=== PATIENT | female | born 1960 | race African-American/Black ===

== ENCOUNTER 2016-09-06 08:27 | Inpatient (IN) ==
[~2016-09-06 08:27] MED LIST: DIPRIVAN 1% 1,000 MG/100 ML BOTTLE ONE
[2016-09-06] MEDS: DIPRIVAN 1% 1,000 MG/100 ML BOTTLE IV SCH ×4 (08:30→23:31)
[2016-09-06] MEDS ORDERED: NS 1,000 ML ONE (08:32)
[2016-09-06] MEDS ORDERED: SOLU-MEDROL ONE (08:32)
[2016-09-06] MEDS ORDERED: SOLU-MEDROL IV ONE (08:35)
--- NOTE | 2016-09-06 09:00 | Diag Imaging Result Doc PS360 ---
EXAM: CHEST-PORTABLE HISTORY: tube placement TECHNIQUE: AP portable at 0850 COMMENT: There is questionable atelectasis in the left lower lobe behind the heart. There is an endotracheal tube with its tip approximately 2 cm above the roxanna. There is an NG tube with its tip coiled in the fundus of the stomach. The inspiration is somewhat suboptimal. There is slight degree of grid cut off and motion artifact but otherwise has been no significant change since 09/20/2015. IMPRESSION: Questionable left lower lobe atelectasis otherwise no evidence of acute disease. Electronically signed by Christofer Adhikari 09/06/2016 8:57 AM
[2016-09-06 09:31] LABS: URINE CULTURE NEEDED? NO; URINE MICRO REVIEW NEEDED? NO; URINE SOURCE CATH
[2016-09-06 09:37] LABS: BILIRUBIN URINE NEGATIVE (NEGATIVE); BLOOD URINE NEGATIVE (NEGATIVE); COLOR YELLOW; GLUCOSE URINE NEGATIVE (NEGATIVE); LEUKOCYTES URINE NEGATIVE (NEGATIVE); NITRITE URINE NEGATIVE (NEGATIVE); PROTEIN URINE 30 mg/dL (NEGATIVE); SP GRAVITY URINE 1.016; TURBIDITY URINE CLEAR (CLEAR); UROBILINOGEN URINE NORMAL (NORMAL)
[2016-09-06 09:39] LABS: UR EPITHELIAL CELLS <10 /HPF (<10); URINE BACTERIA NEGATIVE /HPF; URINE RBC <10 /HPF (<10); URINE WBC <10 /HPF (<10)
[2016-09-06] MEDS: VERSED 100 MG in NS 80 ML IV SCH ×2 (10:30→10:33)
[2016-09-06 11:35] LABS: ALLEN TEST YES; BE 2.4 mmoll (-3.0-3.0); BLOOD TYPE ARTERIAL; DRAW SITE R RADIAL; METHB 0.9 % (0.0-1.5); O2(CT) 16.8 mL/dL (15.0-23.0); PO2(98.6) 231 mmHg (60-100); SAMPLE BLOOD; SAO2 99.6 % (95.0-100.0); SRATE 12 BPM; THB 11.8 g/dL (11.5-17.4); TVOL 500 mL; pH(98.6) 7.34 (7.35-7.45)
[2016-09-06 11:38] LABS: MODALITY VENTILATOR; PCO2(98.6) 54 mmHg (35-45)
[2016-09-06 13:02] LABS: BASO% 0.1 % (0.0-0.8); EOS# 0.07 X1000 (0.0-0.7); EOS% 0.6 % (0.0-10.0); HEMATOCRIT 39.1 % (37.0-47.0); HEMOGLOBIN 12.1 g/dL (12.0-16.0); LYMPH# 0.86 X1000 (1.2-3.4); LYMPH% 7.8 % (20.5-51.1); MANUAL DIFF NEEDED? NO; MCH 28.6 PG (27-31); MCHC 30.9 g/dL (33-37); MCV 92.4 FL (81-99); MONO# 0.19 X1000 (0.11-0.59); MONO% 1.7 % (1.7-9.3); MPV 11.1 FL (7.4-10.4); NEUT% 89.8 % (42.2-75.2); PLT 175 X1000 (130-400); RBC 4.23 XMIL (4.2-5.4)
[2016-09-06 13:14] LABS: AGAP 18; ALBUMIN 3.6 g/dL (3.5-5.0); ALKALINE PHOSPHATASE 125 U/L (32-104); BUN 11 mg/dL (8-22); CALCIUM 8.4 mg/dL (8.8-10.2); CHLORIDE 100 mmol/L (98-107); COSMO 281; GOT 21 U/L (10-30); GPT 16 U/L (10-36); MAGNESIUM 1.9 mg/dL (1.5-2.7); SODIUM 138 mmol/L (136-145); TCO2 20 mmol/L (25-35); TOTAL PROTEIN 6.7 g/dL (6.3-8.3)
[2016-09-06] MEDS ORDERED: DUONEB (A & A) INH PRN (14:22)
[2016-09-06] MEDS ORDERED: SOLU-MEDROL 0 MG in NS 100 ML IV ONE ×2 (14:53→15:18)
[2016-09-06] MEDS: NS 1,000 ML IV SCH (15:16)
[2016-09-06] MEDS: LOVENOX SUBQ SCH (15:17)
[2016-09-06] MEDS: PEPCID IV SCH (15:17)
[2016-09-06] MEDS: ROCEPHIN 1 GM/NS 1 GM/50 ML IVPB IV SCH (15:17)
[2016-09-06] MEDS: SODIUM CHLORIDE 0.9% INJ SCH (15:17)
[2016-09-06] MEDS: HUMALOG SUBQ SCH ×2 (15:41→21:01)
[2016-09-06] MEDS: SOLU-MEDROL IV SCH ×2 (15:41→23:31)
[2016-09-06] MEDS: DUONEB (A & A) INH SCH ×3 (15:51→23:16)
--- NOTE | 2016-09-06 16:56 | HISTORY AND PHYSICAL ---
CHIEF COMPLAINT: Respiratory failure. HISTORY OF PRESENT ILLNESS: Mrs. Buckner is a 56-year-old female, well known to our service with multiple asthma exacerbation admissions. [facility] having EGD and colonoscopy done by Dr. Quezada for diarrhea. After the procedure was done, the patient became short of breath and had audible wheezing. At that time, Dr. Quezada called us for a direct admission to the medical floor for asthma exacerbation. Unfortunately the patient continued to deteriorate and required intubation by Anesthesiology at our [facility]. She was transported to the ER and was stabilized. Currently she shows some mild respiratory acidosis. Her labs are all stable. Her chest x-ray shows good position of tube and her vitals are stable. She is now going to be admitted for status asthmaticus and respiratory failure. PAST MEDICAL HISTORY: Asthma, COPD, type 2 diabetes, hypertension, CHF. SURGICAL HISTORY: Cholecystectomy, port removal, hysterectomy. ALLERGIES: To aspirin and ibuprofen. REVIEW OF SYSTEMS: Unable to obtain. FAMILY HISTORY: Noncontributory. HOME MEDICATIONS: Currently being compiled. PHYSICAL EXAMINATION: VITAL SIGNS: Blood pressure is 114/69, heart rate 89, respiratory rate is 12. O2 saturation is 100% on 100% mechanical ventilation. Temperature is 99.4 degrees. GENERAL: This is an obese female, lying in hospital bed, intubated and sedated. NEUROLOGIC: The patient is sedated on propofol which precludes neurologic examination. HEENT: Head atraumatic and normocephalic. Pupils are equal, round, reactive to light. Oral mucosa is moist. Trachea is midline. There is no JVD or carotid bruits. CHEST: Clear to auscultation bilaterally. Diminished at the bases. CV: Regular rate and rhythm. S1, S2 is noted. No murmurs, gallops, clicks, rubs. GI: Soft, nondistended, nontender. Bowel sounds positive. EXTREMITIES: Without edema, clubbing or cyanosis. Pulses are palpable bilaterally. DIAGNOSTIC DATA: Chest x-ray shows good position of ET tube. No acute findings. ABG on 100% mechanical ventilation, pH 7.34, CO2 54, O2 231, bicarb 26.8, lactic acid 1.7. Sodium 138, potassium 4.0, chloride 100, CO2 20, anion gap 18. BUN 11, creatinine 1, glucose 203. Calcium 8.4, magnesium 1.9. Total bilirubin 0.2, AST 21, ALT 16, alkaline phosphatase 125. Troponin negative. Albumin 3.6. UA is negative. WBC 11.09, hemoglobin 12.9, hematocrit 39.1, platelet count 175,000. ASSESSMENT/PLAN: 1. Acute respiratory failure: Secondary to status asthmaticus. The patient has been intubated and will move her to the ICU. We will continue aggressive pulmonary toilet, steroids, breathing treatments and antibiotics. We will consult Dr. Zarate with Pulmonary Critical Care. 2. Status asthmaticus: As above. We will continue IV steroids, breathing treatments, aggressive pulmonary toilet, oxygen and consult with Dr. Zarate. 3. Diabetes mellitus: Last hemoglobin A1c was 7.5 two days ago. Will add pattern sugars and sliding scale insulin. 4. Hypertension: We will treat with IV medications for now. 5. CHF: Her last echocardiogram done a year ago shows an EF of 65%. She is currently euvolemic. 6. ICU prophylaxis with famotidine IV b.i.d. and Lovenox for DVT prophylaxis. Dictated by KEIRA Bello for Gopal Sin MD cc: KEIRA Bello MD
--- NOTE | 2016-09-06 19:33 | CONSULTATION ---
DATE OF CONSULTATION: 09/06/2016 REQUESTING PHYSICIAN: Hospitalist. REASON FOR CONSULTATION: Respiratory failure. HISTORY OF PRESENT ILLNESS: Ms. Buckner is a 56-year-old black female, nonsmoker, with morbid obesity and asthma who was at [facility] earlier today and underwent an esophagogastroduodenoscopy and a colonoscopy. Following her procedure, she developed progressive wheezing and respiratory distress. She failed to improve with racemic epinephrine and bronchodilators. The patient was subsequently intubated and initiated on mechanical ventilation and transferred to the emergency room prior to transfer to this intensive care unit. PAST MEDICAL HISTORY: 1. Asthma. Patient's medication list is reviewed and she appears to be on Advair 100/50, one puff a day and using Spiriva on a p.r.n. basis. 2. Gastroesophageal reflux with dysphagia. 3. Hypertension. 4. Status post cholecystectomy. 5. Morbid obesity. 6. Gastroparesis. 7. Insulin-requiring diabetes mellitus. 8. Irritable bowel syndrome. 9. Sleep apnea, on CPAP. SOCIAL HISTORY: She is a never smoker. No alcohol use listed. FAMILY HISTORY: Noncontributory to current presentation. REVIEW OF SYSTEMS: Cannot be obtained. PHYSICAL EXAMINATION: General: Reveals an obese, black female who appears her stated age on mechanical ventilation. Vital Signs: Blood pressure 114/69, heart rate 93, respiration rate 12, oxygen saturation 100%. She is afebrile. HEENT: Pupils are equal and reactive. Oropharynx is clear. Neck: Supple. Chest: Reveals good air entry bilaterally with minimal wheezing. Cardiac: Regular rate, normal S1, normal S2. Abdomen: Obese and soft. Extremities: Without edema. LABORATORIES: Chest x-ray reveals possible atelectasis at the left base. Arterial blood gas, pH 7.34, pCO2 of 54, PO2 of 231. IMPRESSION: A 56-year-old with asthma, morbid obesity, Pickwickian status, sleep apnea who developed acute hypoxemic and hypercapnic respiratory failure requiring intubation and mechanical ventilation following an endoscopic procedure. The patient had significant wheezing prior to intubation, but has relatively good air flow now with minimal to no wheezing present. It is not clear whether she had an asthma exacerbation with rapid correction or whether current event was precipitated by laryngospasm. RECOMMENDATIONS: 1. Continue nebulizer and steroids as you are doing. 2. Routine gastric acid suppression. 3. We will initiate weaning parameters tomorrow morning to evaluate extubation. cc: Car Zarate MD MTDD
[2016-09-06] MEDS ORDERED: BLISTEX MEDICATED BERRY LIP BALM TOP PRN (20:50)
[2016-09-07] MEDS: PEPCID IV SCH ×2 (02:05→13:29)
[2016-09-07] MEDS: DIPRIVAN 1% 1,000 MG/100 ML BOTTLE IV SCH ×3 (02:12→07:29)
[2016-09-07] MEDS: NS 1,000 ML IV SCH (03:26)
[2016-09-07] MEDS: DUONEB (A & A) INH SCH ×6 (03:30→23:30)
[2016-09-07 04:33] LABS: ALLEN TEST YES; BE 0.3 mmoll (-3.0-3.0); BLOOD TYPE ARTERIAL; DRAW SITE R RADIAL; METHB 0.6 % (0.0-1.5); O2(CT) 4.2 mL/dL (15.0-23.0); PCO2(98.6) 43 mmHg (35-45); PO2(98.6) 61 mmHg (60-100); SAMPLE BLOOD; SAO2 97.8 % (95.0-100.0); SRATE 12 BPM; TVOL 500 mL; pH(98.6) 7.38 (7.35-7.45)
[2016-09-07 04:35] LABS: MODALITY VENTILATOR
[2016-09-07 05:33] LABS: HEMATOCRIT 34.1 % (37.0-47.0); HEMOGLOBIN 10.7 g/dL (12.0-16.0); MCH 28.2 PG (27-31); MCHC 31.4 g/dL (33-37); MPV 10.4 FL (7.4-10.4); RBC 3.79 XMIL (4.2-5.4)
[2016-09-07 05:58] LABS: CALCIUM 8.4 mg/dL (8.8-10.2); POTASSIUM 4.2 mmol/L (3.5-5.1)
[2016-09-07] MEDS: HUMALOG SUBQ SCH ×4 (06:15→20:09)
--- NOTE | 2016-09-07 07:31 | Diag Imaging Result Doc PS360 ---
EXAM: CHEST-PORTABLE HISTORY: dyspnea TECHNIQUE: Portable COMPARISON: 09/06/2016 FINDINGS: Endotracheal tube is in good position. Nasogastric tube overlies the esophagus and stomach. The lungs are poorly expanded. There is pulmonary edema on the current exam. I believe there is a small left-sided pleural effusion and there is atelectasis in the left base. IMPRESSION: Poor inspiratory effort with interval development of pulmonary edema Electronically signed by Ricky Cerrato 09/07/2016 7:29 AM
[2016-09-07] MEDS: SOLU-MEDROL IV SCH (07:41)
[2016-09-07] MEDS ORDERED: LASIX IV ONE (09:33)
[2016-09-07] MEDS ORDERED: INSULIN PEN NEEDLES ONE (09:39)
[2016-09-07] MEDS: LANTUS SUBQ SCH (09:41)
[2016-09-07 10:08] LABS: ALLEN TEST YES; BE -1.2 mmoll (-3.0-3.0); BLOOD TYPE ARTERIAL; DRAW SITE R RADIAL; METHB 0.9 % (0.0-1.5); O2(CT) 14.9 mL/dL (15.0-23.0); PCO2(98.6) 43 mmHg (35-45); PO2(98.6) 80 mmHg (60-100); SAMPLE BLOOD; SAO2 97.8 % (95.0-100.0); pH(98.6) 7.36 (7.35-7.45)
[2016-09-07 10:09] LABS: MODALITY VENTILATOR
--- NOTE | 2016-09-07 11:21 | PROGRESS NOTE ---
DATE: 09/07/2016 SUBJECTIVE: This patient is still intubated. Propofol has been stopped. She is completely alert. She is following commands. She is on a weaning trial for extubation. OBJECTIVE: Vital Signs: Temperature 98.4 degrees, pulse 108, respiratory rate 16, blood pressure 118/65, on the monitor, O2 saturation 98 on mechanical ventilation. HEENT: Head normocephalic. No trauma. PERRLA. Neck: Supple. No JVD. No masses. Central trachea. Chest: Bilateral crackles. No wheezing. Decreased air entry globally bilaterally. Abdomen: Soft, nontender, nondistended. No hepatosplenomegaly. Extremities: No edema. No clubbing. No cyanosis. Neurological: The patient is alert. She is following commands. She has an endotracheal tube. LABORATORY: WBC 12.5, hemoglobin 10.7, hematocrit 34.1, platelets 277,000. Sodium 140, potassium 4.2, chloride 101, bicarbonate 22, BUN 19, creatinine 1.2, glucose 264, calcium 8.4. ASSESSMENT AND PLAN: 1. Acute hypercapnic respiratory failure likely secondary to asthma attack. This patient is still intubated in the ICU. We are doing a weaning trial. I decreased the dose of the steroids at this moment. Pulmonary Department is following this patient. She has crackles and x-ray today showed mild pulmonary edema. I will stop the fluids and I will give her at a dose of Lasix. 2. Status asthmaticus as above. 3. Type 2 diabetes. Hemoglobin A1c was 7.5, three days ago. She is on pattern of blood sugar and I started today this patient on insulin Lantus. 4. Hypertension. Continue with IV medication for now. 5. Congestive heart failure. Her last echocardiogram done a year ago showed an ejection fraction of 65, probably she has diastolic heart failure. 6. Deep vein thrombosis prophylaxis with Lovenox and GI prophylaxis with famotidine. cc: Gopal Sin MD
[2016-09-07] MEDS ORDERED: S2 RACEPINEPHRINE 2.25% INH ONE (11:50)
[2016-09-07 13:17] LABS: ALLEN TEST YES; BE 2.6 mmoll (-3.0-3.0); BLOOD TYPE ARTERIAL; DRAW SITE R RADIAL; MODALITY COOL AEROSOL; O2(CT) 15.6 mL/dL (15.0-23.0); PCO2(98.6) 45 mmHg (35-45); PO2(98.6) 70 mmHg (60-100); SAMPLE BLOOD; SAO2 96.3 % (95.0-100.0); THB 11.7 g/dL (11.5-17.4)
[2016-09-07] MEDS: ROCEPHIN 1 GM/NS 1 GM/50 ML IVPB IV SCH (13:29)
[2016-09-07] MEDS: TYLENOL PO PRN (13:29)
[2016-09-07] MEDS: LOVENOX SUBQ SCH (13:30)
[2016-09-07] MEDS: SODIUM CHLORIDE 0.9% INJ SCH (13:30)
[2016-09-07] MEDS ORDERED: SOLU-MEDROL IV SCH (20:00)
[2016-09-07] MEDS ORDERED: NORVASC PO ONE (22:38)
[2016-09-08] MEDS: PEPCID IV SCH (02:01)
[2016-09-08] MEDS: DUONEB (A & A) INH SCH ×4 (03:36→23:08)
[2016-09-08 05:43] LABS: HEMATOCRIT 35.1 % (37.0-47.0); HEMOGLOBIN 11.1 g/dL (12.0-16.0); MCH 28.3 PG (27-31); MCHC 31.6 g/dL (33-37); MCV 89.5 FL (81-99); MPV 10.5 FL (7.4-10.4); RBC 3.92 XMIL (4.2-5.4)
[2016-09-08 05:44] LABS: ALLEN TEST YES; BLOOD TYPE ARTERIAL; DRAW SITE R RADIAL; METHB 1.7 % (0.0-1.5); O2(CT) 14.5 mL/dL (15.0-23.0); PCO2(98.6) 43 mmHg (35-45); PO2(98.6) 105 mmHg (60-100); SAMPLE BLOOD; SAO2 100.8 % (95.0-100.0); THB 10.6 g/dL (11.5-17.4); pH(98.6) 7.42 (7.35-7.45)
[2016-09-08 05:45] LABS: MODALITY CANNULA
[2016-09-08 05:55] LABS: AGAP 13; BUN 22 mg/dL (8-22); CALCIUM 8.4 mg/dL (8.8-10.2); CHLORIDE 99 mmol/L (98-107); COSMO 291; POTASSIUM 4.5 mmol/L (3.5-5.1); SODIUM 138 mmol/L (136-145); TCO2 26 mmol/L (25-35)
[2016-09-08] MEDS: HUMALOG SUBQ SCH ×3 (06:15→20:35)
--- NOTE | 2016-09-08 07:00 | Diag Imaging Result Doc PS360 ---
EXAM: CHEST-PORTABLE HISTORY: dyspnea TECHNIQUE: Portable chest COMPARISON: 09/07/2016 FINDINGS: The endotracheal tube has been removed. The nasogastric tube has been removed. The lungs are well expanded. The heart remains borderline mildly prominent. The vessels are not distended. No pleural effusions identified. IMPRESSION: No pneumonia or congestive failure. Electronically signed by Ricky Cerrato 09/08/2016 6:58 AM
[2016-09-08] MEDS: LANTUS SUBQ SCH (09:06)
--- NOTE | 2016-09-08 10:22 | PROGRESS NOTE ---
DATE: 09/08/2016 SUBJECTIVE: Ms. Buckner was admitted on 09/06 in respiratory failure. She is a 56-year-old, well known to our service. Multiple asthma exacerbations and admissions. She was in the [facility] the morning of the having an EGD and colonoscopy done by Dr. Quezada. After the procedure was done the patient became short of breath, audible wheezing. Dr. Quezada called for direct admission and she was admitted here. She showed improvement and was transferred to the Emergency Room and required intubation [facility] because of continued deterioration. PAST MEDICAL HISTORY: Asthma, COPD, diabetes mellitus type 2, hypertension, congestive heart failure. OBJECTIVE: General: She is breathing comfortably now. No audible wheezing. Vital signs: Temp 98.3 degrees, pulse 76, respirations 17, blood pressure 100/67. HEENT: Pupils are equal, round. Lungs: Clear in all lung jules. Cardiovascular: Regular rhythm and rate without murmur or S3. Abdomen: Soft. Skin: Warm and dry. Intake and output: Urine output 3400 mL. LAB: White count 15,640, hematocrit 35, platelet count 286,000. Sodium 138, potassium 4.5, chloride 99, BUN 12, creatinine 1.0. Blood sugar 180 and 310. Chest x-ray noted from today, no pneumonia or congestive heart failure. Lung jules are clear. ASSESSMENT AND PLAN: 1. Acute hypercapnic respiratory failure, likely secondary to asthma attack. She was extubated. Doing much better. There is a possibility that she could go home today. IV has come out. Really do not want to place PICC line at this time. 2. Status asthmaticus. This has improved. 3. Diabetes mellitus type 2. Hemoglobin A1c 7.3. Blood sugar is under good control. 4. Hypertension. 5. Congestive heart failure. We will go ahead and DC her IV and see if we may be can discharge her today or in the morning. cc: Curt Grace MD
[2016-09-08] MEDS: ADVAIR 250/50 DISKUS INH SCH (19:08)
[2016-09-08] MEDS: TYLENOL PO PRN (20:35)
[2016-09-08] MEDS ORDERED: PROTONIX IV SCH (23:45)
[2016-09-08] MEDS ORDERED: SODIUM CHLORIDE 0.9% INJ SCH (23:45)
[2016-09-09] MEDS ORDERED: PROTONIX PO ONE (00:22)
[2016-09-09] MEDS: DUONEB (A & A) INH SCH ×4 (03:29→11:05)
[2016-09-09] MEDS: HUMALOG SUBQ SCH ×2 (06:21→14:06)
[2016-09-09 06:53] LABS: HEMATOCRIT 36.3 % (37.0-47.0); MCH 28.2 PG (27-31); MCHC 30.3 g/dL (33-37); MCV 93.1 FL (81-99); MPV 9.6 FL (7.4-10.4); RBC 3.9 XMIL (4.2-5.4)
[2016-09-09 07:23] VITALS: BP 116/70
[2016-09-09 07:44] LABS: AGAP 10; BUN 24 mg/dL (8-22); CALCIUM 8.1 mg/dL (8.8-10.2); CHLORIDE 102 mmol/L (98-107); COSMO 290; POTASSIUM 4.1 mmol/L (3.5-5.1); SODIUM 142 mmol/L (136-145); TCO2 30 mmol/L (25-35)
[2016-09-09] MEDS: ADVAIR 250/50 DISKUS INH SCH ×2 (07:56)
--- NOTE | 2016-09-09 09:08 | EKG Report ---
Test Performed on : 09/06/2016 10:35:36 AM Test Reason : ENTUBATION Blood Pressure : / mmHG Vent. Rate : 095 BPM Atrial Rate : 095 BPM P-R Int : 188 ms QRS Dur : 076 ms QT Int : 368 ms P-R-T Axes : 051 -03 031 degrees QTc Int : 462 ms Poor data quality, interpretation may be adversely affected Normal sinus rhythm. Cannot rule out Anterior infarct , age undetermined Abnormal ECG No previous ECGs available Unconfirmed Result
[2016-09-09] MEDS: LANTUS SUBQ SCH (09:35)
[2016-09-09] MEDS: TYLENOL PO PRN (10:27)
--- NOTE | 2016-09-09 14:09 | DISCHARGE SUMMARY ---
ADMISSION DATE: 09/06/2016 DISCHARGE DATE: The patient is a 56-year-old, well known to our service with multiple asthma exacerbations. She was at [facility] on the morning of 09/06/2016 for esophagogastroduodenoscopy and colonoscopy per Dr. Quezada. After procedure, just noted the patient became short of breath, audible wheezing, and we admitted her. She had to be intubated for a short time. She was extubated fairly quickly. She had mild respiratory acidosis. Her breathing improved. No further bronchospasm. I will watch her another 24 hours. She was doing well. Chest x-ray was clear and felt like he had no pneumonia or signs of pulmonary venous hypertension. DISPOSITION: Discharged her home on 09/09/2016. DISCHARGE MEDICATIONS: Will be her previous home medications and she is on albuterol nebulizer 2.5 b.i.d., Xanax 0.5 mg b.i.d., amlodipine 10 mg q.a.m., Nexium 40 mg q.a.m., Advair 100/50 one puff twice a day, Lasix 40 mg a day, hydrocodone 10/25 t.i.d., Lantus 5 units at bedtime, Humalog 75-25, 15 units at bedtime, NPH which she also gets 15 q.a.m. Nasonex spray 1 puff b.i.d., and prednisone 20 mg daily. She is on home O2. cc: Curt Grace MD
[2016-09-10] MEDS ORDERED: PROTONIX PO SCH (07:00)
--- NOTE | 2016-09-12 08:12 | ED EKG INTERP ---
This chart was entered by Yanelis Hill Scribe, acting as scribe for Gunnar Barney MD. EKG Interpretation - EKG Time of EKG reading by physician:: 10:35 EKG Read and Signed by:: Gunnar Barney EKG Interpretation (*Must complete 3 of following elements*): Abnormal Rate: 95 Rhythm: nsr [place]: normal QRS: normal MT Interval: normal Comments: cannot rule out anterior infarct This chart was documented by the indicated scribe, (Yanelis Hill Scribe) and accurately reflects the services I performed and decisions made by Ector roman Timothy P., MD, as attested by the provider's signature.
--- NOTE | 2016-09-12 08:12 | PROVIDER DOCUMENTATION ---
This chart was entered by Yanelis Hill Scribe, acting as scribe for Gunnar Barney MD. HPI-Respiratory General - General Chief Complaint: Asthma Attack Stated Complaint: asthma attack Time Seen by Provider: 09/06/16 08:38 Source: EMS Allergies/Adverse Reactions: Patient Allergies Allergy/AdvReac Type Severity Reaction Status Date / Time aspirin Allergy NAUSEA Verified 05/04/15 16:23 ibuprofen [From Advil] Allergy NAUSEA Verified 05/04/15 16:23 Home Medications: Home Medication List Medication Instructions Recorded Confirmed Last Taken Type Esomeprazole Magnesium [Nexium] 40 mg PO QAM 01/04/13 05/19/15 05/19/15 08:00 History Furosemide [Lasix] 40 mg PO QAM 01/04/13 05/19/15 05/19/15 08:00 History Albuterol [Albuterol Neb] 2.5 mg INH BID 04/23/14 05/19/15 05/19/15 14:00 History Amlodipine Besylate 10 mg PO QAM 08/11/14 05/19/15 05/19/15 08:00 History Fluticasone/[place] 100/50 INH 1 puff INH DAILY 08/11/14 05/19/15 05/19/15 08:00 History [Advair 100/50 Diskus] Insulin NPL/Insulin Lispro 15 unit SQ QAM 11/01/14 05/19/15 05/19/15 08:00 History [Humalog Mix 75-25 Pen] Mometasone Nasal [place] [Nasonex 1 spray ROBERT BID 11/01/14 05/19/15 05/19/15 08: 00 History Nasal [place]] Alprazolam [Xanax] 0.5 mg PO BID PRN 12/14/14 05/19/15 05/19/15 08:00 History Hydrocodone/Acetaminophen [[place] 1 each PO TID PRN 12/14/14 05/19/15 05/19/15 08 :00 History 10-325 Tablet] Metformin [Glucophage] 500 mg PO BID 12/14/14 05/19/15 05/19/15 08:00 History Cholecalciferol (Vitamin D3) 2,000 unit PO DAILY #90 tablet 05/10/15 05/19/15 08:00 Rx [Vitamin D3] Insulin Lispro Protamin/Lispro 15 unit SQ QHS #0 05/10/15 05/19/15 05/18/15 21: 00 Rx [Humalog Mix 75-25 Vial] Levofloxacin [Levaquin] 750 mg PO DAILY #5 tablet 05/10/15 05/19/15 05/18/15 08: 00 Rx Levofloxacin [Levaquin] 750 mg PO DAILY #5 tablet 05/24/15 Unknown Rx Prednisone 20 mg PO DAILY #7 tablet 05/24/15 Unknown Rx - History of Present Illness-Resp Nature of Presenting Problem: 56 y/o F presents to ED per EMS. [facility]. The procedure was done. As pt was wakening she become SOB. Pt was given multiple breathing treatments to help with SOB. Pt then became in tripod position in respiratory distress. EMS was called pt was intubated by anesthesiologist at the surgery center. EMS transport pt to ED. On arrival to ED pt was combative and fighting with EMS. Quality of Pain: reports: none, dull Onset/Duration: reports: just prior to arrival Timing: reports: still present Exposure: reports: unknown cause Current Respiratory Medication Therapy: Initiated see nurses note Modifying Factors: improves with: other (vent - intubated) Associated Symptoms: reports: shortness of breath, wheezing Review of Systems - Adult - REVIEW OF SYSTEMS - ADULT ROS:: unobtainable per condition Constitutional: reports: no symptoms reported Respiratory: reports: shortness of breath, wheezing Past History - Adult - PAST MEDICAL HISTORY-ADULT Review of Records: reports: Old Records Reviewed, Nursing Assessment Review Major Childhood Illnesses: reports: denies history Cardiovascular: reports: cardiac disease, CHF, HTN Respiratory: reports: asthma, COPD, sleep apnea (uses CPAP), other (laryngeal edema) Gastrointestinal: reports: diverticulosis, GERD, other (gastroparesis) Obstetrical/Gynecological: reports: denies history Genitourinary: reports: denies history Musculoskeletal: reports: denies history Neurological: reports: headaches/migraines Endocrine/Immune: reports: Diabetes Other Conditions: reports: other (sleep apnea) - PRIOR SURGERIES/PROCEDURES Surgical/Procedure History: reports: colonoscopy, cholecystectomy, hysterectomy , BTL, indwelling device (port) - IMMUNIZATION STATUS Childhood Immunizations: UTD Flu Vaccine: See Nurse Assessment - FAMILY HISTORY Family History: HTN - SOCIAL HISTORY Smoking: denies, non-smoker Substance Use: none/never, denies Physical Exam-General - PHYSICAL EXAM-ADULT Initial Vital Signs Reviewed: Yes - CONSTITUTIONAL General Appearance: alert, severe distress, obese, combative - EYES Eyes: PERRL/EOMI, pink conjunctivae - HEAD, EARS, NOSE, MOUTH & THROAT HENMT: normal ENT inspection - NECK Neck: non-tender - RESPIRATORY Respiratory: decreased breath sounds, wheezing (bilat), increased rate - GASTROINTESTINAL (ABDOMEN) Abdominal Exam: normal bowel sounds, soft - SKIN Integumentary: normal color, warm/dry - NEUROLOGIC Neurologic: grossly normal, other (FROM of all extremites) - PSYCHIATRIC Psych/Mental Status: other (alert, combative) Progress - PLAN OF CARE/RESULTS Progress/Plan/Lab Results: Vital Signs - 8 hr 09/06/16 08:30 09/06/16 09:00 09/06/16 09:11 Temperature Pulse Rate 120 H 109 H Respiratory Rate 12 24 Blood Pressure 69/45 64/49 O2 Sat by Pulse Oximetry 93 L 94 L 100 09/06/16 09:17 09/06/16 09:31 09/06/16 09:45 Temperature 99.4 F Pulse Rate 105 H 108 H 99 H Respiratory Rate 24 24 20 Blood Pressure 59/35 81/50 59/34 O2 Sat by Pulse Oximetry 100 99 100 Bedside Urine ED: Urine Bedside Start: 09/06/16 11:09 Freq: ORDERED Status: Active Activity Type Activity Date Activity User E-Sign Co-Sign Detail Recorded Client Recorded Date Recorded By Document 09/06/16 11:09 [id number] 09/06/16 11:10 [id number] 09/06/16 11:09 Point of Care [Bedside Point of Care] -Lot # [id number] - Results Negative -Control Line Visible? Yes -Additional Comment exp 08/2017 Laboratory Results - last 24 hr 09/06/16 09:01 Urine Source CATH Urine Color YELLOW Urine Turbidity CLEAR Urine pH 6.0 Ur Specific [place] 1.016 Urine Protein 30 A Ur Glucose (Stick) NEGATIVE Ur Ketones (Stick) NEGATIVE Urine Blood NEGATIVE Urine Nitrite NEGATIVE Urine Bilirubin NEGATIVE Urobilinogen Dipstick NORMAL Urine Leukocytes NEGATIVE Urine WBC (Auto) <10 Urine RBC (Auto) <10 U Epithel Cells (Auto) <10 Urine Bacteria (Auto) NEGATIVE Orders Category Date Time Status [place] Cath Insertion ORDERED Care 09/06/16 08:39 Active CHEST-PORTABLE [RAD] Stat Exams 09/06/16 08:33 Completed CBC WITH ELECTRONIC DIFF [HEME] Stat Lab 09/06/16 11:53 Ordered COMPREHENSIVE METABOLIC PANEL [CHEM] Stat Lab 09/06/16 11:53 Ordered MAGNESIUM [CHEM] Stat Lab 09/06/16 11:53 Ordered PRO B-NATRIURETIC PEPTIDE Stat Lab 09/06/16 11:53 Ordered TROPONIN T Stat Lab 09/06/16 11:53 Ordered URINALYSIS W/POSS RFLX CULT [URINALYSIS] Stat Lab 09/06/16 09:01 Completed 0.9% Sodium Chloride Inj [Ns] 1,000 ml Med 09/06/16 08:32 Discontinued .ROUTE As Directed 0.9% Sodium Chloride Inj [Ns] 80 ml Med 09/06/16 10:00 Active Midazolam [Versed] 100 mg IV As Directed Methylprednisolone Sod Succ [Solu-Medrol] Med 09/06/16 08:32 Discontinued 125 mg .ROUTE .STK-MED ONE Propofol [Diprivan 1%] Med 09/06/16 08:24 Discontinued 1,000 mg in 100 ml .ROUTE As Directed Propofol [Diprivan 1%] Med 09/06/16 08:40 Active 1,000 mg in 100 ml IV Per Protocol PLAN: LABS , MONITOR PT PT WAS INTUBATED PRIOR TO ARRIVAL . ON ARRIVAL TO ED PT WAS FIGHTING/COMBATIVE WITH EMS TRYING TO EXTUBATE HERSELF. PT WAS MOVING AIR POORLY WITH SOME WHEEZING. PT IS ALERT BUT NOT ORIENTED. PT IS CONTROLLED AT THIS TIME AND PT AIR MOVEMENT HAS IMPROVED WITH THE VENTILATOR. - REASSESSMENT Reassessment #1 Time Reassessed: 10:50 Status: unchanged (pt is still on ventulator. Labs have not been done due nursing staff unable to draw blood. Lab is trying to draw blood.) - XRAY 1 XRAY: Bilateral XRAY Study: Chest Impression: Abnormal (questionable LLL astelectasis otherwise no evidence of acute disease- (radiologsit)) XRAY Interpretation: see impression - CONSULTS/PCP/HOSPITALIST Notification #1 *Consult/PCP/Hospitalist*: Cuong- (GLOST KILN OPERATOR with hospitalist) ( hospitalist) Time Discussed: 12:40 Consult Disposition: Admit (accepted pt) Departure - Departure Date of Disposition Decision: 09/06/16 Time of Disposition Decision: 09:30 DIAGNOSIS: Respiratory failure, Asthma exacerbation Disposition: ADMITTED INPATIENT 09 Certified Medical Emergency: Emergent Condition: Serious - Critical Care Note This patient required my direct & personal management of CC.: Yes Total Time (mins): 130 Critical Care Statement: This patient required my direct personal management to treat or rule out processes, the absence of which, could potentiallly result in sudden, clinically significant life or limb threatening deterioration. This chart was documented by the indicated scribe, (Yanelis Hill, Bryce) and accurately reflects the services I performed and decisions made by me, Gunnar Barney MD, as attested by the provider's signature.
== END 2016-09-09 15:20 | disposition home or self-care (01) ==
LOC: ED 08:27 → SUATTDRO 10:01 → 3N 10:01 → ICU 11:39 → 3N 09-08 10:56
PROVIDERS: ATTEND Emergency Medicine

== ENCOUNTER 2016-09-27 19:43 | Inpatient (IN) ==
[2016-09-27] MEDS ORDERED: DUONEB (A & A) INH ONE (19:46)
[2016-09-27] MEDS ORDERED: SOLU-MEDROL IV ONE (19:48)
--- NOTE | 2016-09-27 20:28 | Diag Imaging Result Doc PS360 ---
EXAM: CHEST-PORTABLE - 09/27/2016 HISTORY: [facility] TECHNIQUE: Portable chest 2014 COMPARISON: 09/08/2016 FINDINGS: Heart size appears upper normal. Inspiration is mildly shallow with mild basilar subsegmental atelectasis. There is no substantial pleural effusion or pneumothorax identified. IMPRESSION: Mildly shallow inspiration with mild basilar atelectasis. No other evidence of acute disease. Electronically signed by Brandin Browne 09/27/2016 8:26 PM
[2016-09-27 20:36] LABS: MANUAL DIFF NEEDED? NO
[2016-09-27 20:39] LABS: BASO% 0.2 % (0.0-0.8); EOS# 0.28 X1000 (0.0-0.7); HEMATOCRIT 37.6 % (37.0-47.0); HEMOGLOBIN 12.1 g/dL (12.0-16.0); LYMPH# 3.66 X1000 (1.2-3.4); LYMPH% 39.7 % (20.5-51.1); MCH 28.2 PG (27-31); MCHC 32.2 g/dL (33-37); MCV 87.6 FL (81-99); MONO# 0.62 X1000 (0.11-0.59); MONO% 6.7 % (1.7-9.3); MPV 9.8 FL (7.4-10.4); NEUT% 50.4 % (42.2-75.2); PLT 293 X1000 (130-400); RBC 4.29 XMIL (4.2-5.4)
[2016-09-27 20:41] LABS: ALLEN TEST YES; BE 4.3 mmoll (-3.0-3.0); BLOOD TYPE ARTERIAL; DRAW SITE R RADIAL; METHB 1.4 % (0.0-1.5); PCO2(98.6) 33 mmHg (35-45); PO2(98.6) 353 mmHg (60-100); SAMPLE BLOOD; SAO2 99.5 % (95.0-100.0); THB 12.5 g/dL (11.5-17.4); pH(98.6) 7.52 (7.35-7.45)
[2016-09-27 20:42] LABS: MODALITY BI PAP
--- NOTE | 2016-09-27 20:50 | PROVIDER DOCUMENTATION ---
This chart was entered by David Chopra Scribe, acting as scribe for Linsey Good PA. HPI-Respiratory General <Giacnarlo Carrero - Last Filed: 09/27/16 22:46> - General Source: patient, EMS - History of Present Illness-Resp Quality of Pain: reports: other (resp. distress) Severity in ED: reports: moderate, severe Onset/Duration: reports: this morning (worsened this evening) Timing: reports: still present Current Respiratory Medication Therapy: Initiated steroid inhaler Associated Symptoms: reports: cough, hyperventilating, shortness of breath, short of breath, wheezing. denies: chest pain/soreness, headache, heart racing , hurts to breathe, lightheadedness, muscle/bodyaches, nasal congestion, nasal drainage, sinus pain, sore throat, sweaty Similar Symptoms Previously?: Yes Recently seen or treated by another doctor?: No <Linsey Good - Last Filed: 09/27/16 23:18> - General Chief Complaint: Shortness of Breath Stated Complaint: sob Time Seen by Provider: 09/27/16 19:45 Allergies/Adverse Reactions: Patient Allergies Allergy/AdvReac Type Severity Reaction Status Date / Time aspirin Allergy NAUSEA Verified 09/27/16 20:37 ibuprofen [From Advil] Allergy NAUSEA Verified 09/27/16 20:37 Home Medications: Home Medication List Medication Instructions Recorded Confirmed Last Taken Type Esomeprazole Magnesium [Nexium] 40 mg PO QAM 01/04/13 09/27/16 09/27/16 09:00 History Furosemide [Lasix] 40 mg PO QAM 01/04/13 09/27/16 09/26/16 09:00 History Albuterol [Albuterol Neb] 2.5 mg INH BID 04/23/14 09/27/16 09/27/16 09:00 History Amlodipine Besylate 10 mg PO QAM 08/11/14 09/27/16 09/26/16 09:00 History Fluticasone/Salmet 100/50 INH 1 puff INH DAILY 08/11/14 09/27/16 09/27/16 09:00 History [Advair 100/50 Diskus] Insulin NPL/Insulin Lispro 15 unit SQ QAM 0909/27/16 09/27/16 09:00 History [Humalog Mix 75-25 Pen] Mometasone Nasal [place] [Nasonex 1 spray ROBERT BID 11/01/14 09/27/16 09/27/16 09: 00 History Nasal [place]] Alprazolam [Xanax] 0.5 mg PO BID PRN 12/14/14 09/27/16 05/19/15 08:00 History Hydrocodone/Acetaminophen [[place] 1 each PO TID PRN 12/14/14 09/27/16 05/19/15 08 :00 History 10-325 Tablet] Insulin Lispro Protamin/Lispro 15 unit SQ QHS #0 05/10/15 09/27/16 09/26/16 21: 00 Rx [Humalog Mix 75-25 Vial] Insulin Glargine [Lantus] 5 unit SUBQ QHS 09/07/16 09/27/16 09/26/16 21:00 History - History of Present Illness-Resp Nature of Presenting Problem: Pt is a 56 yoaaf who presents to ER via EMS with CC of respiratory distress. Pt reports that she has been short of breath all day and has given herself a breathing tx at home, but did not get any relief. Pt has hx of asthma/COPD and was given 1 breathing tx by EMS. (Linsey Good) Pt is a 56 yoaaf who presents to ER via EMS with CC of respiratory distress. Pt reports that she has been short of breath all day and has given herself a breathing tx at home, but did not get any relief. Pt has hx of asthma/COPD and was given 1 breathing tx by EMS. (David Chopra) Review of Systems - Adult - REVIEW OF SYSTEMS - ADULT Constitutional: denies: chills, fever, fatique, night sweats, weight gain, weight loss Eyes: reports: no symptoms reported Ears, Nose, Mouth & Throat: reports: no symptoms reported Cardiovascular: reports: no symptoms reported Respiratory: reports: dyspnea on exertion, shortness of breath, wheezing. denies: chronic cough, cough, excessive sputum production, hemoptysis, pleurisy Gastrointestinal: reports: no symptoms reported Genitourinary: reports: no symptoms reported Musculoskeletal: reports: no symptoms reported Integumentary: reports: no symptoms reported Neurological: reports: no symptoms reported Psychiatric: reports: no symptoms reported Endocrine: reports: no symptoms reported Hematologic/Lymphatic: reports: no symptoms reported Allergic/Immunologic: reports: no symptoms reported All Other Systems: Reviewed and Negative <Linsey Good - Last Filed: 09/27/16 23:18> Past History - Adult - PAST MEDICAL HISTORY-ADULT Review of Records: reports: Nursing Assessment Review, Medications Reviewed Cardiovascular: reports: cardiac disease, CHF, HTN Respiratory: reports: asthma, COPD, sleep apnea (uses CPAP), other (laryngeal edema) Gastrointestinal: reports: diverticulosis, GERD, other (gastroparesis) Neurological: reports: headaches/migraines Endocrine/Immune: reports: Diabetes Other Conditions: reports: other (sleep apnea) - PRIOR SURGERIES/PROCEDURES Surgical/Procedure History: reports: colonoscopy, cholecystectomy, hysterectomy , BTL, indwelling device (port) - IMMUNIZATION STATUS Childhood Immunizations: UTD, See Nurse Assessment Flu Vaccine: See Nurse Assessment - FAMILY HISTORY Family History: HTN <Linsey Good - Last Filed: 09/27/16 23:18> Physical Exam-General - PHYSICAL EXAM-ADULT Initial Vital Signs Reviewed: Yes - CONSTITUTIONAL General Appearance: appears well, alert, moderate distress, obese - RESPIRATORY Respiratory: chest non-tender, lungs clear, no pleuratic chest pain, respiratory distress, accessory muscle use, rhonchi (lower jules), wheezing ( all jules). negative: normal breath sounds, no respiratory distress, no accessory muscle use, decreased breath sounds - CARDIOVASCULAR Cardiovascular: normal peripheral pulses, tachycardia. negative: regular rate, rhythm, bradycardia, irregularly irregular - MUSCULOSKELETAL Extremity: normal range of motion, non-tender, normal gait, normal inspection, no pedal edema, no calf tenderness, normal capillary refill, pelvis stable. negative: deformity, erythema, inflammation, pedal edema, slow capillary refill - PSYCHIATRIC Psych/Mental Status: normal thought content, normal thought process, oriented x 3, anxious, disheveled. negative: normal mood/affect <Linsey Good - Last Filed: 09/27/16 23:18> Progress - PLAN OF CARE/RESULTS Result Diagrams: 09/27/16 20:27 09/27/16 20:27 <Giancarlo Carrero - Last Filed: 09/27/16 22:46> - PLAN OF CARE/RESULTS Result Diagrams: 09/27/16 20:27 09/27/16 20:27 - EKG 1 Time of EKG reading by physician:: 19:40 EKG Read and Signed by:: Giancarlo Carrero EKG Interpretation (*Must complete 3 of following elements*): Abnormal (Left axis deviation; Possible anterior infarct, age undetermined) Rate: 126 Rhythm: Sinus tachycardia - XRAY 1 XRAY Study: Chest Impression: See EMR Report (Mildly shallow inspiration with mild basilar atelectasis. No other evidence of acute disease. - Dr. Browne (Radiologist)) XRAY Interpretation: See report 2 XRAY: Bilateral XRAY Study: Chest Impression: See EMR Report (NG tube in place; ET tube in place - Dr. Carrero) XRAY Interpretation: See report - CONSULTS/PCP/HOSPITALIST Notification #1 *Consult/PCP/Hospitalist*: Dr. Jeffrey Time Discussed: 21:46 Reason/Comments: respiratory distress Consult Disposition: Admit <Linsey Good - Last Filed: 09/27/16 23:18> - PLAN OF CARE/RESULTS Progress/Plan/Lab Results: Vital Signs - 8 hr 09/27/16 19:53 09/27/16 20:00 09/27/16 20:08 Temperature 97.6 F Pulse Rate 132 H 129 H Respiratory Rate 30 H 36 H Blood Pressure 138/91 O2 Sat by Pulse Oximetry 98 100 09/27/16 22:02 Temperature Pulse Rate 118 H Respiratory Rate 14 Blood Pressure 134/88 O2 Sat by Pulse Oximetry 100 Laboratory Results - last 24 hr 09/27/16 09/27/16 09/27/16 19:57 20:27 20:27 WBC 9.23 RBC 4.29 Hgb 12.1 Hct 37.6 MCV 87.6 MCH 28.2 MCHC 32.2 L RDW Std Deviation 14.1 Plt Count 293 MPV 9.8 Immature Gran % (Auto) 0.0 Neut % (Auto) 50.4 Lymph % (Auto) 39.7 Rooks % (Auto) 6.7 Eos % (Auto) 3.0 Baso % (Auto) 0.2 Immature Gran # (Auto) 0.00 Neut # (Auto) 4.65 Lymph # (Auto) 3.66 H Rooks # (Auto) 0.62 H Eos # (Auto) 0.28 Baso # (Auto) 0.02 PT INR PTT (Actin FS) Specimen Type Sample Site pH pCO2 pO2 HCO3 Base Excess Oxyhemoglobin ABG O2 Sat (Calculated) ABG O2 Saturation ABG Carboxyhemoglobin ABG Methemoglobin Curt Test A-a O2 Difference Total Hemoglobin Lactate Blood Gas Modality Vent Mode FiO2 % Inspiratory BiPAP Expiratory BiPAP Sodium 142 Potassium 4.2 Chloride 103 Carbon Dioxide 24 L Anion Gap 15 BUN 13 Creatinine 1.1 H Estimated GFR/1.73 m2 > 60 BUN/Creatinine Ratio 12 Glucose 246 H POC Glucose 264 H Calculated Osmolality 291 Calcium 9.4 Magnesium 1.9 Total Bilirubin 0.11 L AST 13 ALT 14 Alkaline Phosphatase 125 H Creatine Kinase 60 Bml-B-Nblsycnnndv Pept Total Protein 7.4 Albumin 3.9 Globulin 3.5 Albumin/Globulin Ratio 1.1 09/27/16 09/27/16 09/27/16 20:27 20:27 20:32 WBC RBC Hgb Hct MCV MCH MCHC RDW Std Deviation Plt Count MPV Immature Gran % (Auto) Neut % (Auto) Lymph % (Auto) Rooks % (Auto) Eos % (Auto) Baso % (Auto) Immature Gran # (Auto) Neut # (Auto) Lymph # (Auto) Rooks # (Auto) Eos # (Auto) Baso # (Auto) PT 9.4 INR 0.90 PTT (Actin FS) 26.6 Specimen Type ARTERIAL Sample Site R RADIAL pH 7.52 H pCO2 33 L pO2 353 H HCO3 28.3 H Base Excess 4.3 H Oxyhemoglobin 97.0 ABG O2 Sat (Calculated) 18.0 ABG O2 Saturation 99.5 ABG Carboxyhemoglobin 1.10 ABG Methemoglobin 1.4 Curt Test YES A-a O2 Difference 319.0 Total Hemoglobin 12.5 Lactate 2.70 H Blood Gas Modality BI PAP Vent Mode BIPAP FiO2 % 100.0 Inspiratory BiPAP 20.0 Expiratory BiPAP 6.0 Sodium Potassium Chloride Carbon Dioxide Anion Gap BUN Creatinine Estimated GFR/1.73 m2 BUN/Creatinine Ratio Glucose POC Glucose Calculated Osmolality Calcium Magnesium Total Bilirubin AST ALT Alkaline Phosphatase Creatine Kinase Iuz-T-Wbiruyfoeow Pept < 5 L Total Protein Albumin Globulin Albumin/Globulin Ratio Orders Category Date Time Status FSBS [Finger Stick Blood Sugar (ED)] DIRECTED Care 09/27/16 19:53 Active Dillard Cath Insertion ORDERED Care 09/27/16 22:47 Active NG/OG/Feeding Tube Insertion ORDERED Care 09/27/16 22:47 Active Saline Loc DIRECTED Care 09/27/16 19:46 Active CHEST-PORTABLE [RAD] Stat Exams 09/27/16 19:46 Completed CHEST/ABD TUBE PLACEMENT [RAD] Stat Exams 09/27/16 22:48 Taken ABG [RESP] Routine Lab 09/27/16 20:32 Completed BLOOD CULTURE [BLDCUL] Stat Lab 09/27/16 20:27 Results CBC WITH ELECTRONIC DIFF [HEME] Stat Lab 09/27/16 20:27 Completed CK PROFILE [SP CHEM] Stat Lab 09/27/16 20:27 Completed COMPREHENSIVE METABOLIC PANEL [CHEM] Stat Lab 09/27/16 20:27 Completed MAGNESIUM [CHEM] Stat Lab 09/27/16 20:27 Completed PRO B-NATRIURETIC PEPTIDE Stat Lab 09/27/16 20:27 Completed PROTIME WITH INR [COAG] Stat Lab 09/27/16 20:27 Completed PTT [COAG] Stat Lab 09/27/16 20:27 Completed UA NIMS W/REFLEX CULT [URINALYSIS] Stat Lab 09/27/16 22:48 Uncollected Albuterol 2.5MG/Ipratrop 0.5MG [Duoneb (A & A)] Med 09/27/16 19:46 Discontinued 9 ml INH NOW ONE Etomidate [Amidate] Med 09/27/16 21:57 Discontinued 40 mg IV NOW ONE Methylprednisolone Sod Succ [Solu-Medrol] Med 09/27/16 19:48 Discontinued 125 mg IV NOW ONE Propofol [Diprivan 1%] Med 09/27/16 21:58 Active 1,000 mg in 100 ml IV Per Protocol Racepinephrine 2.25% [S2 Racepinephrine 2.25%] Med 09/27/16 21:43 Discontinued 1 each .ROUTE .STK-MED ONE Succinylcholine [Quelicin] Med 09/27/16 21:58 Discontinued 100 mg IV NOW ONE Aerosol Treatments Routine Oth 09/27/16 19:46 Active Aerosol Treatments Stat Oth 09/27/16 19:46 Active Aerosol Treatments Stat Oth 09/27/16 19:46 Active Pulse Oximetry Stat Oth 09/27/16 19:46 Active EKG [EKG] Stat Ther 09/27/16 19:46 Ordered Procedures - INTUBATION Time of Intubation: 22:46 Airway Evaluation: Obese, Large tongue Mallampati Class: 2 Intubation Method: orotracheal Equipment: Glidescope Tube Size (cm): 7.5 Pretreated with 100% Oxygen?: Yes Breath Sounds after Intubation: equal ETT Primary Tube Confirmation: Capnometry CO2 Change, Direct Visualization, Chest Rise and Fall, Tube placement verified on XRAY Intubation Complications: no complications Vent Settings: See Respiratory Therapy Notes <Giancarlo Carrero - Last Filed: 09/27/16 22:46> Departure <Giancarlo Carrero - Last Filed: 09/27/16 22:46> - Departure Date of Disposition Decision: 09/27/16 Time of Disposition Decision: 21:42 Certified Medical Emergency: Emergent - Critical Care Note This patient required my direct & personal management of CC.: No <Linsey Good - Last Filed: 09/27/16 23:18> - Departure DIAGNOSIS: COPD exacerbation, SOB (shortness of breath) Asthma exacerbation Qualifiers: Asthma severity: unspecified severity Qualified Code(s): J45.901 - Unspecified asthma with (acute) exacerbation DIAGNOSIS: (Ruled Out): PNA (pneumonia) Disposition: ADMITTED INPATIENT 09 Condition: Stable Referrals and Follow-Ups: None,PCP [Primary Care Provider] - Attestation - Physician/ ELODIA Attestation Patient care was provided by Advanced Practice Provider:: Yes Advanced Practice Provider:: Linsey Good Advanced Practice Provider documentation review:: The Mid-level provider documentation, treatment plan and medical decision making was reviewed by the physician who agrees with all treatment and medical decision making by the [facility]. The physician spent face to face time with patient:: No Advanced Practice Provider documentation review:: Supervising physician onsite and consulted in the evaluation and care of this patient. The physician did not have a face to face encounter with the patient. <Linsey Good - Last Filed: 09/27/16 23:18> This chart was documented by the indicated scribe, (David Chopra Scribe) and accurately reflects the services I performed and decisions made by me, Linsey Good PA, as attested by the provider's signature.
[2016-09-27 20:51] LABS: INR 0.9; PROTIME 9.4 Seconds (9.2-11.7); PTT 26.6 Seconds (22.0-36.0)
[2016-09-27 21:01] LABS: AGAP 15; ALBUMIN 3.9 g/dL (3.5-5.0); ALKALINE PHOSPHATASE 125 U/L (32-104); BUN 13 mg/dL (8-22); CALCIUM 9.4 mg/dL (8.8-10.2); CHLORIDE 103 mmol/L (98-107); CK PROFILE 60 U/L (24-173); COSMO 291; GOT 13 U/L (10-30); GPT 14 U/L (10-36); MAGNESIUM 1.9 mg/dL (1.5-2.7); POTASSIUM 4.2 mmol/L (3.5-5.1); SODIUM 142 mmol/L (136-145); TCO2 24 mmol/L (25-35); TOTAL BILIRUBIN 0.11 mg/dL (0.20-1.00); TOTAL PROTEIN 7.4 g/dL (6.3-8.3)
[2016-09-27] MEDS ORDERED: S2 RACEPINEPHRINE 2.25% ONE (21:43)
[2016-09-27] MEDS ORDERED: AMIDATE IV ONE (21:57)
[2016-09-27] MEDS ORDERED: QUELICIN IV ONE (21:58)
[2016-09-27] MEDS: DIPRIVAN 1% 1,000 MG/100 ML BOTTLE IV SCH (23:27)
--- NOTE | 2016-09-28 00:06 | HISTORY AND PHYSICAL ---
REASON FOR ADMISSION: Worsening shortness of breath for the last 1 week. HISTORY OF PRESENT ILLNESS: Ms. Kathy Buckner is 56-year-old lady with past medical history of COPD/asthma, type 2 diabetes, hypertension and reflux disease who has had prior multiple admissions for asthma exacerbation. The last time she was here she was actually intubated. Today patient complains of 1-week history of progressive worsening shortness of breath more so in the last 2 days. She admits to having coughing up whitish sputum but no hemoptysis. Was very difficult to get a good history from the patient because she was in acute respiratory distress on the BiPAP mask. She denies any new lower extremity swelling. She admits to having retrosternal chest pain which is really sharp and not radiating to any particular area. Denies any fever and chills. The patient admits to having worsening orthopnea and PND over the last couple of days. Not aware if she has had any palpitations, no polydipsia, polydipsia obviously. Patient denies any GI or genitourinary complaints of an acute nature. REVIEW OF SYSTEMS: Very limited due to inability to get a coherent history the patient due to fact she was in respiratory distress. ALLERGIES: Aspirin and ibuprofen. HOME MEDICATIONS: Include Lasix 40 mg daily, Advair 100/50 daily, magnesium 40 mg daily, amlodipine 10 mg daily, Xanax 2.5 mg b.i.d., albuterol 2 puffs b.i.d., Lantus 5 units at bedtime, Plain 1 t.i.d., Nasonex 1 spray b.i.d., lispro 15 units q.a.m. and 15 units at bedtime. PRIMARY CARE PHYSICIAN: No primary care provider. SURGICAL HISTORY: She has had tubal ligation, port removed, hysterectomy, cholecystectomy. FAMILY HISTORY: Positive for heart disease, diabetes and prostate cancer. SOCIAL HISTORY: Does not smoke, drink, or use drugs. Lives alone. LABORATORY WORK: White count 9000, hemoglobin and hematocrit 12 and 37, platelets 293,000 with normal differential. Glucose 246, BUN 13, creatinine 1.1. ProBNP is less than 5. PT/PTT normal, pH 7.52, pCO2 33, PO2 353 and this was on FiO2 100% IPAP 20, EPAP 6. Chest x-ray shallow inspiration with mild bibasilar atelectasis. PHYSICAL EXAMINATION: GENERAL: Morbidly obese woman who is in moderate respiratory distress. She is alert and oriented to time with normal mood and affect but she is anxious. She has a BiPAP mask on her face. HEENT: Head is normocephalic, atraumatic. SABRINA, EOMI. Anicteric and not pale. ENT and oropharynx exam was not done because patient has a BiPAP mask on her face, no visual central cyanosis noted. VITAL SIGNS: Blood pressure 134/84, heart rate 118, respirations 14, temperature 97.6. NECK: Short and thick. No bruits or JVD appreciated, no bruit or thyromegaly. CHEST: Decreased air entry in both lung jules with scattered wheezes. CARDIOVASCULAR: First and 2nd heart sounds heard. No gallops, rubs. Rhythm is regular. ABDOMEN: Protuberant soft, nontender. No mass, megaly, bowel sounds hypoactive. RECTAL: Deferred at this time. EXTREMITIES: Good pulses distally in all extremities and is symmetrical. Trace edema noted in both lower extremities. No clubbing, cyanosis, tremors and no asterixis. SKIN: Intact, no breakdown, lesion, erythema. MUSCULAR: Exam is grossly normal. ASSESSMENT: 1. Acute respiratory failure secondary to asthma exacerbation. 2. Asthma exacerbation. 3. Seasonal allergic rhinitis. 4. Hypertension. 5. Type 2 diabetes. PLAN: At this time will optimize out treatment of asthma exacerbation with steroids, bronchodilator, breathing treatments. Patient clinically at this point in time seems to be the tiring out and will require intubation which she is agreeable to. Chest x-ray was very limited film but in the meantime will empirically start antibiotics. For follow up x- ray which hopefully will be evaluated and if there is no infiltrate, these antibiotics can be discontinued. Blood sugars to be monitored with sliding scale. The patient will have DVT prophylaxis and peptic ulcer disease prophylaxis also. Continue blood pressure medications only if systolic blood pressure is greater than 140m, will modify vent settings based on ABGs. Critical care time this patient was 35 minutes. cc: Cielo Jeffrey MD [facility]
[2016-09-28 00:07] LABS: URINE CULTURE NEEDED? NO; URINE MICRO REVIEW NEEDED? NO; URINE SOURCE CATH
[2016-09-28 00:23] LABS: BILIRUBIN URINE NEGATIVE (NEGATIVE); BLOOD URINE NEGATIVE (NEGATIVE); COLOR YELLOW; GLUCOSE URINE 100 mg/dL (NEGATIVE); LEUKOCYTES URINE NEGATIVE (NEGATIVE); NITRITE URINE NEGATIVE (NEGATIVE); PH URINE 5.5; PROTEIN URINE 30 mg/dL (NEGATIVE); SP GRAVITY URINE 1.028; TURBIDITY URINE CLEAR (CLEAR); UR EPITHELIAL CELLS <10 /HPF (<10); URINE BACTERIA NEGATIVE /HPF; URINE RBC <10 /HPF (<10); URINE WBC <10 /HPF (<10); UROBILINOGEN URINE 2 mg/dL (NORMAL)
[2016-09-28] MEDS ORDERED: HUMULIN R SUBQ SCH (01:09)
[2016-09-28] MEDS ORDERED: LANTUS SUBQ SCH (01:09)
[2016-09-28] MEDS ORDERED: ZOFRAN IV PRN (01:09)
[2016-09-28] MEDS ORDERED: SODIUM CHLORIDE 0.9% INJ ONE (01:09)
[2016-09-28 01:59] LABS: ALLEN TEST YES; BE 1.2 mmoll (-3.0-3.0); BLOOD TYPE ARTERIAL; DRAW SITE R RADIAL; METHB 1.6 % (0.0-1.5); O2(CT) 15.6 mL/dL (15.0-23.0); PCO2(98.6) 36 mmHg (35-45); PO2(98.6) 77 mmHg (60-100); SAMPLE BLOOD; SAO2 97.2 % (95.0-100.0); SRATE 16 BPM; THB 11.7 g/dL (11.5-17.4); pH(98.6) 7.45 (7.35-7.45)
[2016-09-28 02:00] LABS: MODALITY VENTILATOR
[2016-09-28] MEDS: ZITHROMAX 500 MG/NS 500 MG/250 ML IVPB IV SCH ×2 (02:00→02:10)
[2016-09-28] MEDS: LOVENOX SUBQ SCH (02:08)
[2016-09-28] MEDS: MORPHINE IV SCH ×2 (02:08→06:03)
[2016-09-28] MEDS: ROCEPHIN 1 GM/NS 1 GM/50 ML IVPB IV SCH (02:09)
[2016-09-28] MEDS: SOLU-MEDROL IV SCH ×4 (02:10→18:23)
[2016-09-28] MEDS: DUONEB (A & A) INH SCH ×6 (03:15→23:19)
[2016-09-28 04:45] LABS: ALLEN TEST YES; BE -4.2 mmoll (-3.0-3.0); BLOOD TYPE ARTERIAL; DRAW SITE R RADIAL; METHB 1.1 % (0.0-1.5); O2(CT) 16.7 mL/dL (15.0-23.0); PCO2(98.6) 33 mmHg (35-45); PO2(98.6) 98 mmHg (60-100); SAMPLE BLOOD; SAO2 98.6 % (95.0-100.0); SRATE 16 BPM; THB 12.2 g/dL (11.5-17.4); TVOL 600 mL; pH(98.6) 7.39 (7.35-7.45)
[2016-09-28 04:47] LABS: MODALITY VENTILATOR
[2016-09-28 05:14] LABS: BASO% 0.2 % (0.0-0.8); EOS# 0.01 X1000 (0.0-0.7); EOS% 0.1 % (0.0-10.0); HEMATOCRIT 34.3 % (37.0-47.0); HEMOGLOBIN 10.9 g/dL (12.0-16.0); LYMPH% 7.3 % (20.5-51.1); MANUAL DIFF NEEDED? YES; MCH 28.3 PG (27-31); MCHC 31.8 g/dL (33-37); MCV 89.1 FL (81-99); MONO# 0.04 X1000 (0.11-0.59); MONO% 0.5 % (1.7-9.3); MPV 10.3 FL (7.4-10.4); NEUT% 91.9 % (42.2-75.2); PLT 273 X1000 (130-400); RBC 3.85 XMIL (4.2-5.4)
[2016-09-28] MEDS: NS 1,000 ML IV SCH ×2 (05:17→15:15)
[2016-09-28 05:22] LABS: INR 0.97; PROTIME 10.2 Seconds (9.2-11.7)
[2016-09-28 05:40] LABS: ALBUMIN 3.7 g/dL (3.5-5.0); CALCIUM 8.9 mg/dL (8.8-10.2); POTASSIUM 4.6 mmol/L (3.5-5.1); TOTAL BILIRUBIN 0.12 mg/dL (0.20-1.00); TOTAL PROTEIN 6.4 g/dL (6.3-8.3)
[2016-09-28 05:49] LABS: TVOL 600 mL
[2016-09-28] MEDS: HUMULIN R SUBQ SCH ×6 (06:04→20:08)
[2016-09-28 06:32] LABS: LYMPHS 7 % (21-51); MONO 2 % (1-9)
[2016-09-28] MEDS: DIPRIVAN 1% 1,000 MG/100 ML BOTTLE IV SCH ×7 (07:21→18:23)
--- NOTE | 2016-09-28 07:52 | Diag Imaging Result Doc PS360 ---
EXAM: CHEST/ABD TUBE PLACEMENT - 09/27/2016 HISTORY: tube placement TECHNIQUE: Portable AP supine chest 11:18 PM COMPARISON: Earlier exam of same evening (09/27/2016) at 2015 FINDINGS: There has been insertion of an intracranial tube with its tip 3.2 cm above the roxanna. There has been interval insertion of a nasogastric tube with its tip at the expected location of the mid stomach. There is increased atelectasis versus development of infiltrate at the left base. The remainder lungs appear clear. There are no other acute changes identified. IMPRESSION: Satisfactory positions of endotracheal and nasogastric tubes. Increased atelectasis versus development of infiltrate at the left base. Electronically signed by Brandin Browne 09/28/2016 7:50 AM
--- NOTE | 2016-09-28 07:54 | Diag Imaging Result Doc PS360 ---
EXAM: CHEST-PORTABLE - 09/28/2016 HISTORY: Short of breath TECHNIQUE: Portable chest 0525 COMPARISON: 09/27/2016 at 11:18 PM FINDINGS: Endotracheal tube and nasogastric tube remain in place. Inspiration is somewhat shallow. There is been interval decrease in atelectasis or infiltrate at the left base. For inspiration, lungs appear grossly clear. There is no pleural effusion or pneumothorax identified. Allowing for inspiration and the AP projection, heart size appears in the upper range of normal. IMPRESSION: Somewhat shallow inspiration. Decrease in left basilar atelectasis or infiltrate. Electronically signed by Brandin Browne 09/28/2016 7:52 AM
[2016-09-28] MEDS: PROTONIX IV SCH (08:42)
[2016-09-28] MEDS: LASIX IV SCH (08:43)
[2016-09-28] MEDS ORDERED: D5 1/2 NS 1,000 ML IV SCH (09:15)
--- NOTE | 2016-09-28 10:06 | PROGRESS NOTE ---
DATE: 09/28/2016 SUBJECTIVE: She is intubated and sedated. Appears comfortable. The lungs are clear anterolateral. OBJECTIVE: Temperature 98.5 degrees, pulse 89, respirations 16, blood pressure 198/52, O2 saturation 97%. Chest x-ray from today: Somewhat shallow inspiration, decreased left basilar atelectasis or infiltrate. Has NG-tube placement. She had come in with worsening shortness of breath yesterday and had trouble breathing for the last week. By report, a 56-year-old with past medical history of COPD, asthma, type 2 diabetes mellitus, hypertension, and reflux disease. Has had prior multiple admissions for asthma exacerbation. At this time, she is actually intubated. Difficult to get a history. She was in acute respiratory distress and on a BiPAP. She had no new extremity swelling. She admits to having retrosternal chest pain which is really sharp not radiating to any particular area. ASSESSMENT AND PLAN: 1. Acute respiratory failure. Asthma exacerbation. Continue ventilator support. Wean as able. Continue bronchodilators. 2. Hypertension. 3. Diabetes mellitus, type 2. Looking at her orders, she was getting 1. Ceftriaxone 1 g IV q. 24 hours. 2. Normal saline running at 100 mL an hour. 3. Methylprednisone 40 mg IV q 6. 4. Albuterol ipratropium breathing treatments. 5. She is getting Lasix 40 mg daily. 6. Getting morphine as needed for pain and sedation. 7. Protonix 40 mg IV daily 8. She is sedated with propofol as well. cc: Curt Grace MD
[2016-09-28] MEDS ORDERED: NS 250 ML ONE (11:17)
--- NOTE | 2016-09-28 13:51 | CONSULTATION ---
DATE OF CONSULTATION: 09/28/2016 REQUESTING PHYSICIAN: Dr. Grace. REASON FOR CONSULTATION: Respiratory failure. HISTORY OF PRESENT ILLNESS: Ms. Buckner is a 56-year-old black female with asthma, nonsmoker, morbid obesity, gastroesophageal reflux with dysphagia, who presented to the emergency room with respiratory distress. She failed BiPAP and was subsequently intubated, initiated on mechanical ventilation. The patient was seen by this practitioner 09/06/2016 when she presented with respiratory failure following an esophagogastroduodenoscopy and a colonoscopy at the outpatient surgery center. She was successfully extubated and discharged home. PAST MEDICAL HISTORY: 1. Asthma. 2. Gastroesophageal reflux disease. 3. Atypical chest pain with a normal cardiac catheterization in December 2012. 4. Status post cholecystectomy. 5. Morbid obesity. 6. Gastroesophageal reflux disease. 7. Insulin-requiring diabetes mellitus. 8. Irritable bowel syndrome. 9. Sleep apnea on CPAP. SOCIAL HISTORY: No alcohol use. She is a never smoker. FAMILY HISTORY: Noncontributory to current presentation. REVIEW OF SYSTEMS: Cannot be obtained. PHYSICAL EXAMINATION: General: Reveals an obese, black female resting comfortably on mechanical ventilation. Vital signs: Blood pressure 84/53, heart rate 89, respiration rate 16, oxygen saturation 97%. HEENT: Pupils are equal and reactive. Oropharynx is clear. Neck: Thick but supple. Chest: Reveals good air entry bilaterally. There is minimal wheezing. The exploratory phase is not prolonged. Cardiac Exam: Distant heart sounds. Normal S1, normal S2. Abdomen: Obese and soft. Extremities: Reveal trace edema. LABORATORIES: White blood count 8.23, hemoglobin 10.9, platelet count 273,000. Arterial blood gas this morning, pH 7.39, pCO2 of 33, PO2 of 98 with an increasing lactate level. Chemistries: Sodium 141, potassium 4.6, chloride 100, bicarbonate 24, anion gap is elevated at 21, BUN 18, creatinine 1.2. Troponin level is negative. Chest x-ray reveals shallow inspiration with bibasilar atelectasis. IMPRESSION: This is a 56-year-old with asthma who presents with atypical presentation for asthma with acute hypoxemic respiratory failure and respiratory distress. Chest x-ray reveals shallow inspiration which would not be typical for an asthma exacerbation. Her chest exam now reveals minimal wheezing which it would also be unlikely that her full blown asthma exacerbation would clear to this point following a brief course of mechanical ventilation and IV steroids. The patient had a cardiac catheterization in December which revealed no evidence of coronary artery disease. She was not significantly hypertensive upon presentation. It is possible she had an asthma exacerbation which is quick to improve and therefore it will be prudent to review her home medication list and compliance. Other possibilities such as reflux with associated laryngospasm would also be in the differential. RECOMMENDATION: 1. Fluid bolus for increasing lactate and mild hypotension. 2. Continue full ventilatory support. 3. Continue antibiotics. 4. Check sputum for culture and sensitivity. 5. Additional recommendations pending hospital course. cc: Car Zarate MD
[2016-09-28] MEDS: HUMULIN 70/30 SUBQ SCH (20:14)
[2016-09-28] MEDS: LANTUS SUBQ SCH (22:13)
[2016-09-29] MEDS: DIPRIVAN 1% 1,000 MG/100 ML BOTTLE IV SCH ×8 (01:01→19:13)
[2016-09-29] MEDS: NS 1,000 ML IV SCH ×2 (01:03→10:10)
[2016-09-29] MEDS: LOVENOX SUBQ SCH (01:04)
[2016-09-29] MEDS: ROCEPHIN 1 GM/NS 1 GM/50 ML IVPB IV SCH (01:04)
[2016-09-29] MEDS: SOLU-MEDROL IV SCH ×4 (01:04→18:11)
[2016-09-29] MEDS: DUONEB (A & A) INH SCH ×6 (04:01→22:49)
[2016-09-29 04:43] LABS: ALLEN TEST YES; BE -9.9 mmoll (-3.0-3.0); BLOOD TYPE ARTERIAL; DRAW SITE R RADIAL; METHB 1.2 % (0.0-1.5); O2(CT) 15.1 mL/dL (15.0-23.0); PCO2(98.6) 35 mmHg (35-45); PO2(98.6) 89 mmHg (60-100); SAMPLE BLOOD; SAO2 97.7 % (95.0-100.0); SRATE 16 BPM; THB 11.2 g/dL (11.5-17.4); TVOL 600 mL; pH(98.6) 7.27 (7.35-7.45)
[2016-09-29 04:47] LABS: MODALITY VENTILATOR
[2016-09-29 05:04] LABS: HEMATOCRIT 35.8 % (37.0-47.0); HEMOGLOBIN 11.5 g/dL (12.0-16.0); MCH 28.9 PG (27-31); MCHC 32.1 g/dL (33-37); MCV 89.9 FL (81-99); MPV 11.2 FL (7.4-10.4); RBC 3.98 XMIL (4.2-5.4)
[2016-09-29 05:30] LABS: AGAP 28; ALBUMIN 3.7 g/dL (3.5-5.0); ALKALINE PHOSPHATASE 103 U/L (32-104); BUN 18 mg/dL (8-22); CALCIUM 8.9 mg/dL (8.8-10.2); CHLORIDE 101 mmol/L (98-107); COSMO 298; GOT 27 U/L (10-30); GPT 15 U/L (10-36); SODIUM 143 mmol/L (136-145); TCO2 14 mmol/L (25-35); TOTAL BILIRUBIN < 0.10 mg/dL (0.20-1.00); TOTAL PROTEIN 6.6 g/dL (6.3-8.3)
[2016-09-29] MEDS ORDERED: NS 1,000 ML IV SCH (05:30)
[2016-09-29] MEDS ORDERED: NS 500 ML IV SCH (05:34)
[2016-09-29] MEDS: HUMULIN R SUBQ SCH ×4 (06:55→21:00)
--- NOTE | 2016-09-29 07:40 | Diag Imaging Result Doc PS360 ---
EXAM: CHEST-PORTABLE - 09/29/2016 HISTORY: vent TECHNIQUE: Portable chest 0520 COMPARISON: 09/28/2016 FINDINGS: Endotracheal tube and nasogastric tube remain in place. There is been interval insertion of a PICC from the left, this tip in the right atrium. There is mild infiltrate or atelectasis at the left base. The remainder lungs appear clear. There is a possible tiny left pleural effusion. There is no pneumothorax seen. Heart size appears upper normal. IMPRESSION: Tip of PICC in right atrium. Mild infiltrate or atelectasis at left base. Possible tiny left pleural effusion. Electronically signed by Brandin Browne 09/29/2016 7:37 AM
[2016-09-29] MEDS ORDERED: VANCOMYCIN 1 GM/NS 1 GM/250 ML IVPB IV ONE (07:51)
[2016-09-29] MEDS ORDERED: VANCOMYCIN IV PER PHARMACY MISC SCH (08:30)
--- NOTE | 2016-09-29 08:37 | PROGRESS NOTE ---
DATE: 09/29/2016 SUBJECTIVE: Still intubated. Appears to be comfortable. OBJECTIVE: Vital signs: Temp is 98.3 degrees, pulse 109, respirations 18, blood pressure 123/86. HEENT: Pupils are equal. Neck: CVP less than 6 cm. Lungs: Clear in all lung jules. Cardiovascular: Regular rhythm and rate without murmur or S3. Abdomen: Soft. Skin: Warm and dry. Intake and output: Urine output was 2300 mL. LABS: This morning, white count elevated at 15,150, hematocrit 35, platelet count 185,000. Chemistry: Sodium 143, potassium 4.0, chloride 101, BUN is 18, creatinine 1.2. Blood sugar 391, 364, 292. ASSESSMENT AND PLAN: 1. Note, anion gap has gone up. Lactate level has gone up as well to 10 and more acidotic. We are going to start insulin drip. I had started some 70/30 insulin split yesterday. Will check acetone level. We will check a chest x-ray. Actually 1 was checked this morning and it showed a PICC line in right atrium. Mild infiltrate or atelectasis in left base. So will treat her for sepsis and broaden her antibiotics, adding vancomycin and Zosyn. 2. Respiratory failure. Continue vent management. Requires full ventilatory support. Give her fluids liberally and give her fluid bolus. She had mild hypotension. 3. Morbid obesity hypoventilation syndrome. 4. History gastroesophageal reflux. 5. Atypical chest pain. She had a normal heart catheterization in December 2012. cc: Curt Grace MD
[2016-09-29] MEDS: HUMULIN R 100 UNIT in NS 100 ML IV SCH (09:29)
[2016-09-29] MEDS: PROTONIX IV SCH (09:30)
[2016-09-29] MEDS: LASIX IV SCH (09:30)
[2016-09-29] MEDS: ZOSYN 3.375 GM/NS 3.375 GM/50 ML IVPB IV SCH ×2 (09:34→13:33)
[2016-09-29] MEDS ORDERED: INSULIN PEN NEEDLES ONE (09:38)
[2016-09-29] MEDS ORDERED: VANCOMYCIN 2,000 MG in NS 500 ML IV ONE (10:00)
[2016-09-29] MEDS: HUMULIN 70/30 SUBQ SCH ×2 (10:45→21:00)
--- NOTE | 2016-09-29 13:08 | Diag Imaging Result Doc PS360 ---
EXAM: THORAX/ABDOMEN/PELVIS - 09/29/2016 HISTORY: intubated leukocytosis progressive lactic acidosis TECHNIQUE: With oral and intravenous contrast. Dose reduction protocol. COMPARISON: CT thorax of 05/20/2015 FINDINGS: CT thorax: There is mild cardiomegaly. There is dependent atelectasis of the bilateral lower lobes. There is mild dependent atelectasis of the bilateral upper lobes. There is no other consolidation identified. There is a tiny left pleural effusion. There is no pneumothorax identified. There is no mediastinal adenopathy. There are endotracheal and nasogastric tube is present. CT abdomen and pelvis: There are no substantial analysis of the liver, spleen, adrenal glands, or pancreas identified. The gallbladder surgically absent. There is mild hydronephrosis on the right, no etiology for which is apparent. There is no renal stone identified. The bilateral kidneys enhance homogeneously. There is a Dillard catheter in the urinary bladder. There is an apparent surgical mesh at the lower anterior abdominal wall which suggests previous hernia repair. There is a small fat-containing midline anterior abdominal wall hernia superior to the apparent surgical repair. There is no bowel containing hernia identified. There is no evidence of bowel obstruction. There is colonic diverticulosis. There is no diverticulitis identified. There is no free air or abscess identified. There appears to been previous hysterectomy. There is no abnormal pelvic mass or fluid collection identified. IMPRESSION: CT thorax: Mild cardiomegaly. Dependent atelectasis at bilateral lower lobes. Tiny left pleural effusion. CT abdomen and pelvis: Mild hydronephrosis on the right, no etiology for which is apparent. Colonic diverticulosis. No evidence of diverticulitis. No abscess. No free air. No bowel obstruction. Electronically signed by Brandin Browne 09/29/2016 1:05 PM
--- NOTE | 2016-09-29 13:14 | Diag Imaging Result Doc PS360 ---
EXAM: NECK W/CONTRAST - 09/29/2016 HISTORY: intubated leukocytosis progressive lactic acidosis TECHNIQUE: With intravenous contrast. Dose reduction protocol. COMPARISON: None. FINDINGS: There is an orotracheal tube present. The oropharynx and hypopharynx are not distended with air due to the presence of the endotracheal tube. There is a nasogastric tube present. There is no discrete inflammation identified. There is no abscess identified. There is no discrete mass lesion identified. There are no substantial enlarged or necrotic appearing lymph nodes identified. There is mild mucosal thickening at the inferior right maxillary sinus. The paranasal sinuses and mastoid air cells otherwise appear clear. IMPRESSION: Orotracheal tube and nasogastric tube present. Allowing for these, no visible acute process in the neck. There is mild mucosal thickening noted at the inferior right maxillary sinus. Electronically signed by Brandin Browne 09/29/2016 1:12 PM
[2016-09-29] MEDS: LANTUS SUBQ SCH (21:00)
[2016-09-30] MEDS: DUONEB (A & A) INH SCH ×6 (03:07→23:10)
[2016-09-30] MEDS: NS 1,000 ML IV SCH ×2 (03:52→06:33)
[2016-09-30] MEDS: ZOSYN 3.375 GM/NS 3.375 GM/50 ML IVPB IV SCH ×5 (03:56→20:52)
[2016-09-30] MEDS: LOVENOX SUBQ SCH (03:56)
[2016-09-30] MEDS: SOLU-MEDROL IV SCH ×4 (03:57→18:13)
[2016-09-30 05:26] LABS: ALLEN TEST YES; BE 0.6 mmoll (-3.0-3.0); BLOOD TYPE ARTERIAL; DRAW SITE R RADIAL; METHB 0.8 % (0.0-1.5); O2(CT) 15.2 mL/dL (15.0-23.0); PCO2(98.6) 26 mmHg (35-45); PO2(98.6) 150 mmHg (60-100); SAMPLE BLOOD; SAO2 99.3 % (95.0-100.0); SRATE 16 BPM; THB 10.9 g/dL (11.5-17.4); TVOL 600 mL; pH(98.6) 7.54 (7.35-7.45)
[2016-09-30 05:27] LABS: MODALITY VENTILATOR
[2016-09-30] MEDS: ZITHROMAX 500 MG/NS 500 MG/250 ML IVPB IV SCH (06:33)
[2016-09-30 06:44] LABS: AGAP 18; ALBUMIN 3.4 g/dL (3.5-5.0); ALKALINE PHOSPHATASE 85 U/L (32-104); BUN 17 mg/dL (8-22); CALCIUM 8.1 mg/dL (8.8-10.2); CHLORIDE 105 mmol/L (98-107); COSMO 297; GOT 27 U/L (10-30); GPT 16 U/L (10-36); POTASSIUM 3.5 mmol/L (3.5-5.1); SODIUM 145 mmol/L (136-145); TCO2 22 mmol/L (25-35); TOTAL BILIRUBIN 0.13 mg/dL (0.20-1.00); TOTAL PROTEIN 6.2 g/dL (6.3-8.3)
[2016-09-30] MEDS: HUMULIN R SUBQ SCH ×4 (07:16→20:59)
--- NOTE | 2016-09-30 07:17 | Diag Imaging Result Doc PS360 ---
EXAM: CHEST-PORTABLE INDICATION: vent TECHNIQUE: One view COMPARISON: 09/29/2016 FINDINGS: This study is very underexposed. The ET tube appears to be in stable position. The NG tube cannot be identified due to the exposure. Given the limitations of the study, the lungs are approximately stable. There is no definite new consolidation. Cardiac silhouette is stable. IMPRESSION: Very limited study due to underexposure. However, grossly stable. Electronically signed by Marco Antonio Infante 09/30/2016 7:14 AM
--- NOTE | 2016-09-30 07:19 | EKG Report ---
Test Performed on : 09/27/2016 7:40:37 PM Test Reason : Chest Pain Blood Pressure : / mmHG Vent. Rate : 126 BPM Atrial Rate : 126 BPM P-R Int : 158 ms QRS Dur : 082 ms QT Int : 296 ms P-R-T Axes : 042 -34 019 degrees QTc Int : 428 ms Sinus tachycardia. Left axis deviation Possible Anterior infarct (cited on or before 06-SEP-2016) Abnormal ECG When compared with ECG of 06-SEP-2016 10:35, No significant change was found Unconfirmed Result
[2016-09-30] MEDS: DIPRIVAN 1% 1,000 MG/100 ML BOTTLE IV SCH ×9 (07:29→22:52)
[2016-09-30] MEDS: LASIX IV SCH ×3 (08:27→18:13)
[2016-09-30] MEDS: PROTONIX IV SCH (08:27)
[2016-09-30] MEDS: HUMULIN R 100 UNIT in NS 100 ML IV SCH (08:28)
[2016-09-30] MEDS: HUMULIN 70/30 SUBQ SCH ×2 (08:29→20:57)
[2016-09-30 08:35] LABS: HEMATOCRIT 31.8 % (37.0-47.0); HEMOGLOBIN 10.3 g/dL (12.0-16.0); MCH 28.8 PG (27-31); MCHC 32.4 g/dL (33-37); MCV 88.8 FL (81-99); MPV 10.5 FL (7.4-10.4); RBC 3.58 XMIL (4.2-5.4)
[2016-09-30] MEDS: VANCOMYCIN 2,000 MG in NS 500 ML IV SCH (09:31)
[2016-09-30] MEDS ORDERED: VANCOMYCIN 1,500 MG in NS 250 ML IV SCH (10:00)
[2016-09-30] MEDS: D5 1/2 NS 1,000 ML IV SCH (11:22)
--- NOTE | 2016-09-30 15:53 | PROGRESS NOTE ---
DATE: 09/30/2016 SUBJECTIVE: Still ventilatory dependent, sedated. OBJECTIVE: Vital signs: Temperature 97.9 degrees, pulse 96, respirations 15, blood pressure 123/79. HEENT: Pupils are equal, round. Lungs: Are clear in all lung jules. Cardiovascular: Regular rhythm and rate without murmur or S3. Abdomen: Soft. Skin: Is warm and dry. Urine output over 5 L. LABS: Review lab from today still some leukocytosis white count 17,230, hematocrit 31, platelet count 275,000. Chemistry. Sodium 150, 250, 254 and 280, electrolytes unremarkable. Chest x-ray unremarkable limited study due to under exposure, ET tube appears to be in stable condition. Chest and abdominal CT done 6th mild cardiomegaly, dependent atelectasis bilateral lower lobes, tiny left pleural effusion. CT abdomen, pelvis mild hydronephrosis of the right. ASSESSMENT AND PLAN: 1. Respiratory failure. Continue vent support. Wean as able. 2. Hyperglycemia is on insulin drip. Continue to adjust, sugars starting come down. 3. Morbid obesity. 4. Gastroesophageal reflux. Review of lab review of orders I do not see anything change at this point. cc: Curt Grace MD
[2016-09-30] MEDS: LANTUS SUBQ SCH (20:54)
[2016-09-30] MEDS: MORPHINE IV PRN (22:59)
[2016-10-01] MEDS: SOLU-MEDROL IV SCH ×4 (00:13→18:28)
[2016-10-01] MEDS: LOVENOX SUBQ SCH (00:14)
[2016-10-01] MEDS: DIPRIVAN 1% 1,000 MG/100 ML BOTTLE IV SCH ×4 (01:09→07:13)
[2016-10-01] MEDS: ZITHROMAX 500 MG/NS 500 MG/250 ML IVPB IV SCH (01:20)
[2016-10-01] MEDS: ZOSYN 3.375 GM/NS 3.375 GM/50 ML IVPB IV SCH ×4 (01:20→20:50)
[2016-10-01] MEDS: LASIX IV SCH ×2 (01:43→09:08)
[2016-10-01] MEDS: DUONEB (A & A) INH SCH ×6 (02:30→23:03)
[2016-10-01 04:36] LABS: ALLEN TEST YES; BE 9.3 mmoll (-3.0-3.0); BLOOD TYPE ARTERIAL; DRAW SITE R RADIAL; METHB 0.3 % (0.0-1.5); O2(CT) 13.1 mL/dL (15.0-23.0); PCO2(98.6) 38 mmHg (35-45); PO2(98.6) 79 mmHg (60-100); SAMPLE BLOOD; SAO2 98.5 % (95.0-100.0); SRATE 10 BPM; THB 9.6 g/dL (11.5-17.4); TVOL 600 mL; pH(98.6) 7.54 (7.35-7.45)
[2016-10-01 04:37] LABS: MODALITY VENTILATOR
[2016-10-01] MEDS: D5 1/2 NS 1,000 ML IV SCH ×2 (04:53→21:21)
[2016-10-01 05:33] LABS: HEMATOCRIT 33.4 % (37.0-47.0); HEMOGLOBIN 10.9 g/dL (12.0-16.0); MCH 29.5 PG (27-31); MCHC 32.6 g/dL (33-37); MCV 90.3 FL (81-99); MPV 10.4 FL (7.4-10.4); RBC 3.7 XMIL (4.2-5.4)
[2016-10-01 06:11] LABS: AGAP 15; ALBUMIN 3.5 g/dL (3.5-5.0); ALKALINE PHOSPHATASE 83 U/L (32-104); BUN 19 mg/dL (8-22); CALCIUM 7.6 mg/dL (8.8-10.2); CHLORIDE 98 mmol/L (98-107); COSMO 295; POTASSIUM 3.3 mmol/L (3.5-5.1); SODIUM 143 mmol/L (136-145); TCO2 30 mmol/L (25-35); TOTAL BILIRUBIN 0.18 mg/dL (0.20-1.00)
[2016-10-01 06:26] LABS: GOT 24 U/L (10-30); GPT 14 U/L (10-36)
[2016-10-01] MEDS: HUMULIN R SUBQ SCH (07:14)
--- NOTE | 2016-10-01 07:19 | Diag Imaging Result Doc PS360 ---
EXAM: CHEST-PORTABLE HISTORY: vent TECHNIQUE: Erect AP portable at 0520 COMMENT: There is an endotracheal tube with its tip at thoracic inlet and an NG tube which is coiled in the fundus of the stomach. The inspiration is suboptimal. There is bibasilar atelectasis. IMPRESSION: Bibasilar atelectasis Electronically signed by Christofer Adhikari 10/01/2016 7:17 AM
[2016-10-01] MEDS ORDERED: POTASSIUM CHLORIDE 40 MEQ/SWI 40 MEQ/100 ML IVPB IV ONE (08:49)
[2016-10-01] MEDS: HUMULIN R 100 UNIT in NS 100 ML IV SCH (09:02)
[2016-10-01] MEDS: PROTONIX IV SCH (09:07)
--- NOTE | 2016-10-01 09:34 | PROGRESS NOTE ---
DATE: 10/01/2016 SUBJECTIVE: This patient is still on mechanical ventilation and sedated, family members at the bedside. All their questions were answered. OBJECTIVE: Vital Signs: Temperature 98 degrees, pulse 62, respiratory rate on the ventilator 18, blood pressure 119/64, oxygen saturation 96 on mechanical ventilation 40% FiO2. HEENT: Head normocephalic. No trauma. PERRLA. Neck: Supple. No JVD. No masses. Central trachea. Cardiovascular: RRR. No murmurs. Chest: Decreased breath sounds at the bases with mild rales. Abdomen: Soft and nondistended. Skin: Warm and dry. Extremities: Lower extremity without edema. Upper extremity around 2+ edema. Neurological examination: The patient is sedated and intubated. LABORATORY: WBC 10.6, hemoglobin 10.9, hematocrit 33.4, platelets 273. Sodium 143, potassium 3.3, chloride 98, bicarbonate 30. BUN 19, creatinine 1, glucose 232, calcium 7.6, albumin 3.5. ASSESSMENT AND PLAN: 1. Acute hypoxemic respiratory failure, likely secondary to severe asthma exacerbation. Continue with ventilatory support, Pulmonary Department is following this patient. We will wean this patient as able. 2. Uncontrolled diabetes. This patient is receiving also steroids which might contribute to her hyperglycemia. She has been getting insulin drip, Lantus and 70/30. I will stop the subcutaneous insulin, and I will start this patient on insulin drip per protocol. I will readjust her insulin tomorrow once I know how much insulin she required in 24 hours. 3. Morbid obesity. Continue with the same management. Probably this patient also has obesity hypoventilation syndrome. Pulmonary Department is following. 4. Gastroesophageal reflux disease. Continue with proton pump inhibitors. 5. Deep vein thrombosis prophylaxis with Lovenox. 6. Hypokalemia. I will replace the potassium today. CRITICAL CARE TIME: 35 minutes. cc: Gopal Sin MD
[2016-10-01] MEDS: VANCOMYCIN 2,000 MG in NS 500 ML IV SCH (09:51)
[2016-10-01 10:03] LABS: ALLEN TEST YES; BE 10.6 mmoll (-3.0-3.0); BLOOD TYPE ARTERIAL; DRAW SITE R RADIAL; O2(CT) 17.6 mL/dL (15.0-23.0); PO2(98.6) 66 mmHg (60-100); SAMPLE BLOOD; THB 13.5 g/dL (11.5-17.4); pH(98.6) 7.46 (7.35-7.45)
[2016-10-01 10:11] LABS: MODALITY VENTILATOR
[2016-10-01] MEDS ORDERED: HUMULIN R 100 UNIT in NS 100 ML IV SCH (10:11)
[2016-10-01 10:14] LABS: PCO2(98.6) 51 mmHg (35-45)
[2016-10-01] MEDS: TYLENOL PO PRN (15:48)
[2016-10-01] MEDS: MORPHINE IV PRN (20:28)
[2016-10-01] MEDS ORDERED: NORCO-10 PO PRN (23:39)
[2016-10-02] MEDS: LOVENOX SUBQ SCH (00:32)
[2016-10-02] MEDS: SOLU-MEDROL IV SCH ×3 (00:32→09:46)
[2016-10-02] MEDS: ZITHROMAX 500 MG/NS 500 MG/250 ML IVPB IV SCH (02:18)
[2016-10-02] MEDS: ZOSYN 3.375 GM/NS 3.375 GM/50 ML IVPB IV SCH ×4 (02:18→21:00)
[2016-10-02] MEDS: DUONEB (A & A) INH SCH ×6 (03:05→23:08)
[2016-10-02 04:14] LABS: ALLEN TEST YES; BE 11.2 mmoll (-3.0-3.0); BLOOD TYPE ARTERIAL; DRAW SITE R RADIAL; METHB 1.1 % (0.0-1.5); O2(CT) 13.8 mL/dL (15.0-23.0); PO2(98.6) 57 mmHg (60-100); SAMPLE BLOOD; SAO2 92.2 % (95.0-100.0); THB 10.9 g/dL (11.5-17.4); pH(98.6) 7.45 (7.35-7.45)
[2016-10-02 04:15] LABS: MODALITY CANNULA
[2016-10-02 04:16] LABS: PCO2(98.6) 53 mmHg (35-45)
[2016-10-02 06:11] LABS: HEMATOCRIT 33.5 % (37.0-47.0); HEMOGLOBIN 10.6 g/dL (12.0-16.0); MCH 28.6 PG (27-31); MCHC 31.6 g/dL (33-37); MCV 90.3 FL (81-99); MPV 10.5 FL (7.4-10.4); RBC 3.71 XMIL (4.2-5.4)
[2016-10-02 06:32] LABS: AGAP 11; ALBUMIN 3.5 g/dL (3.5-5.0); ALKALINE PHOSPHATASE 70 U/L (32-104); BUN 26 mg/dL (8-22); CALCIUM 7.2 mg/dL (8.8-10.2); CHLORIDE 101 mmol/L (98-107); COSMO 295; GOT 17 U/L (10-30); GPT 13 U/L (10-36); POTASSIUM 3.5 mmol/L (3.5-5.1); SODIUM 145 mmol/L (136-145); TCO2 33 mmol/L (25-35); TOTAL BILIRUBIN 0.25 mg/dL (0.20-1.00); TOTAL PROTEIN 6.5 g/dL (6.3-8.3)
--- NOTE | 2016-10-02 07:36 | Diag Imaging Result Doc PS360 ---
CHEST-PORTABLE - 10/02/2016 INDICATION: vent TECHNIQUE: COMPARISON: 10/01/2016 FINDINGS: The endotracheal tube and nasogastric tube have been removed. The left PICC line appears to have come back somewhat, the tip is now directed into the azygos vein. Lung volumes are improved. No significant infiltrates. Heart size and pulmonary vascularity is normal. IMPRESSION: Extubation. Improvement from prior. Electronically signed by Lawrence Stokes 10/02/2016 7:34 AM
[2016-10-02] MEDS: LASIX IV SCH (09:00)
[2016-10-02] MEDS: PROTONIX IV SCH (09:00)
[2016-10-02] MEDS ORDERED: 1/2 NS 1,000 ML IV SCH (09:38)
[2016-10-02] MEDS ORDERED: LANTUS SUBQ SCH (09:45)
[2016-10-02] MEDS ORDERED: CALMOSEPTINE OINTMENT TOP PRN (09:55)
--- NOTE | 2016-10-02 09:57 | PROGRESS NOTE ---
DATE: 10/02/2016 SUBJECTIVE: This patient was extubated yesterday. She is doing fine. She is completely alert and oriented x3. She is tolerating food also. Since she is doing much better, I will transfer this patient to the medical floor. I will remove the Dillard catheter and I will adjust her medications. OBJECTIVE: Vital Signs: Temperature 96.8 degrees, pulse 63, respiratory rate 12, blood pressure 127/70, and oxygen saturation 96 on 3 L of nasal cannula. HEENT: Head normocephalic. No trauma. PERRLA. Neck: Supple. No JVD. No masses. Central trachea. Cardiovascular: RRR. No murmurs. Chest: Decreased breath sounds at the bases with mild rales. Abdomen: Soft, nontender, nondistended. Skin: Warm and dry. Extremities: Lower extremity without edema. Upper extremities are around 1+ to 2+ edema. Neurological examination: The patient is alert and oriented x3. No focal neurological deficits. She moves all 4 extremities. LABORATORY: WBC 10.3, hemoglobin 10.6, hematocrit 90.3, platelets 270. Sodium 145, potassium 3.5, chloride 101, bicarbonate 33, BUN 26, creatinine 0.9, glucose 125, calcium 7.2, albumin 3.5. ASSESSMENT AND PLAN: 1. Acute hypoxemic respiratory failure likely secondary to severe asthma exacerbation. This patient was extubated yesterday. She is not having respiratory failure at this moment. We will transfer this patient to the medical floor. 2. Uncontrolled diabetes. I have placed this patient on Lantus 20 units q.a.m. and sliding scale insulin. I will readjust the dose of the Lantus if I have to. 3. Morbid obesity. Continue with the same management. Probably this patient also has hypoventilation syndrome. Pulmonary Department is following this patient. 4. Gastroesophageal reflux disease. Continue with proton pump inhibitors, but I will switch the Protonix from intravenous to oral. 5. Deep vein thrombosis prophylaxis. Continue with Lovenox. 6. Hypokalemia, resolved. CRITICAL CARE TIME: 35 minutes. cc: Gopal Sin MD
[2016-10-02] MEDS: HUMULIN R SUBQ SCH ×3 (11:22→21:27)
[2016-10-03] MEDS: SOLU-MEDROL IV SCH ×2 (01:00→11:10)
[2016-10-03] MEDS: LOVENOX SUBQ SCH (02:44)
[2016-10-03] MEDS: ZOSYN 3.375 GM/NS 3.375 GM/50 ML IVPB IV SCH ×4 (02:44→20:30)
[2016-10-03] MEDS: DUONEB (A & A) INH SCH ×6 (03:17→22:50)
[2016-10-03 04:25] LABS: ALLEN TEST YES; BE 10.5 mmoll (-3.0-3.0); BLOOD TYPE ARTERIAL; DRAW SITE R RADIAL; METHB 0.6 % (0.0-1.5); O2(CT) 15.2 mL/dL (15.0-23.0); PO2(98.6) 87 mmHg (60-100); SAMPLE BLOOD; SAO2 99.3 % (95.0-100.0); THB 11.1 g/dL (11.5-17.4); pH(98.6) 7.45 (7.35-7.45)
[2016-10-03 04:26] LABS: MODALITY CANNULA; PCO2(98.6) 52 mmHg (35-45)
[2016-10-03 05:22] LABS: HEMATOCRIT 35.2 % (37.0-47.0); HEMOGLOBIN 11.1 g/dL (12.0-16.0); MCH 27.9 PG (27-31); MCHC 31.5 g/dL (33-37); MCV 88.4 FL (81-99); MPV 10.2 FL (7.4-10.4); RBC 3.98 XMIL (4.2-5.4)
[2016-10-03 05:44] LABS: AGAP 14; ALBUMIN 3.2 g/dL (3.5-5.0); ALKALINE PHOSPHATASE 78 U/L (32-104); BUN 35 mg/dL (8-22); CALCIUM 7.7 mg/dL (8.8-10.2); CHLORIDE 95 mmol/L (98-107); COSMO 297; GOT 13 U/L (10-30); GPT 13 U/L (10-36); POTASSIUM 3.4 mmol/L (3.5-5.1); SODIUM 141 mmol/L (136-145); TCO2 32 mmol/L (25-35); TOTAL BILIRUBIN 0.32 mg/dL (0.20-1.00); TOTAL PROTEIN 6.3 g/dL (6.3-8.3)
[2016-10-03] MEDS: HUMULIN R SUBQ SCH ×4 (06:21→20:44)
[2016-10-03] MEDS: PROTONIX PO SCH (06:22)
--- NOTE | 2016-10-03 07:35 | Diag Imaging Result Doc PS360 ---
EXAM: CHEST-PORTABLE HISTORY: TECHNIQUE: Portable AP COMPARISON: 10/02/2016 FINDINGS: the left-sided PICC line is in good position with the tip overlying the right atrium. Poor inspiratory effort. The heart is borderline mildly prominent. No consolidation. The vessels are not distended. No pleural effusions identified. IMPRESSION: The PICC line is in good position. Heart is borderline mildly prominent. Electronically signed by Ricky Cerrato 10/03/2016 7:33 AM
[2016-10-03] MEDS ORDERED: LANTUS SUBQ SCH (08:29)
[2016-10-03] MEDS ORDERED: INSULIN PEN NEEDLES ONE (09:01)
[2016-10-03] MEDS: LASIX PO SCH (09:08)
--- NOTE | 2016-10-03 14:55 | PROGRESS NOTE ---
DATE: 10/03/2016 SUBJECTIVE: This patient was extubated 2 days ago. She is doing fine. She has been transferred to the floor, she is alert and oriented x3. She is tolerating food. Dillard catheter has been removed. She has been complaining of loose stools. I will ask for C. difficile toxin and antigen to rule out colitis. Also, I will increase the dose of Lantus because her blood sugar was around 240. I will continue with sliding scale insulin. OBJECTIVE: Vital Signs: Temperature 97.9 degrees, pulse 65, respiratory rate 18, blood pressure 125/70, O2 saturation 96 on 3 L of nasal cannula. HEENT: Head normocephalic. No trauma. PERRLA. Neck: Supple. No JVD. No masses. Central trachea. Chest: Decreased breath sounds at the bases. Abdomen: Soft, nontender, nondistended. Skin: Warm and dry. Extremities: No edema at the level of the lower extremities, upper extremities are around 1 to 2+ edema. Neurological: The patient is alert and oriented x3. No focal neurological deficits. She moves all 4 extremities. LABORATORY: WBC 12.4, hemoglobin 11.1, hematocrit 35.2, platelets 262,000. Sodium 141, potassium 3.4, chloride 95, bicarbonate 32, BUN 35, creatinine 0.9, glucose 240, calcium 7.7, albumin 3.2. ASSESSMENT AND PLAN: 1. Acute hypoxemic respiratory failure likely secondary to severe asthma exacerbation. This patient was extubated 2 days ago. She is not having any kind of respiratory distress at this moment, continue with breathing treatment, and oxygen supplementation. 2. Uncontrolled diabetes. I have increased the dose of Lantus from 20 to 24 in the morning, continue with a sliding scale and I will readjust her dose of Lantus if I have to in the morning again. 3. Morbid obesity. Continue with the same management. Probably this patient has also hypoventilation syndrome. Pulmonary department is following this patient. 4. Gastroesophageal reflux disease. Continue with proton pump inhibitors. 5. Deep vein thrombosis prophylaxis. Continue with Lovenox. 6. Hypokalemia. I will replace the potassium today. 7. Diarrhea. I will ask for Clostridium difficile toxin and antigen to rule out colitis, will monitor. cc: Gopal Sin MD
[2016-10-04] MEDS: SOLU-MEDROL IV SCH (01:57)
[2016-10-04] MEDS: ZOSYN 3.375 GM/NS 3.375 GM/50 ML IVPB IV SCH ×2 (01:57→08:54)
[2016-10-04] MEDS: LOVENOX SUBQ SCH (01:57)
[2016-10-04] MEDS: TYLENOL PO PRN (03:00)
[2016-10-04] MEDS: DUONEB (A & A) INH SCH ×3 (03:40→11:28)
[2016-10-04] MEDS: PROTONIX PO SCH (06:09)
[2016-10-04] MEDS: HUMULIN R SUBQ SCH ×2 (06:10→11:23)
[2016-10-04 06:56] LABS: HEMATOCRIT 34.6 % (37.0-47.0); MCH 28.5 PG (27-31); MCHC 31.8 g/dL (33-37); MCV 89.6 FL (81-99); MPV 9.9 FL (7.4-10.4); RBC 3.86 XMIL (4.2-5.4)
[2016-10-04 07:11] LABS: AGAP 10; ALBUMIN 3.3 g/dL (3.5-5.0); ALKALINE PHOSPHATASE 72 U/L (32-104); BUN 27 mg/dL (8-22); CALCIUM 8.3 mg/dL (8.8-10.2); CHLORIDE 96 mmol/L (98-107); COSMO 291; GOT 9 U/L (10-30); GPT 12 U/L (10-36); POTASSIUM 3.8 mmol/L (3.5-5.1); SODIUM 140 mmol/L (136-145); TCO2 34 mmol/L (25-35); TOTAL PROTEIN 6.4 g/dL (6.3-8.3)
[2016-10-04 07:40] VITALS: BP 127/78
--- NOTE | 2016-10-04 07:44 | Diag Imaging Result Doc PS360 ---
EXAM: CHEST-2 VIEWS HISTORY: abnormal exam TECHNIQUE: PA and lateral chest COMMENT: There is ill-defined opacity in the retrocardiac portion of the left lower lobe. This was not clearly present on the previous radiographs however there was apparently bibasal or atelectasis on the CT of the chest dated 09/29/2016. IMPRESSION: Left lower lobe atelectasis versus pneumonia. Electronically signed by Christofer Adhikari 10/04/2016 7:42 AM
[2016-10-04] MEDS ORDERED: LANTUS SUBQ SCH (07:53)
[2016-10-04] MEDS: LASIX PO SCH (08:55)
[2016-10-04] MEDS ORDERED: PREDNISONE PO SCH (09:00)
[2016-10-04] MEDS ORDERED: MEDROL DOSEPAK PO SCH ×2 (11:45→12:00)
[2016-10-04] MEDS ORDERED: MEDROL PO SCH (12:00)
--- NOTE | 2016-10-04 18:16 | DISCHARGE SUMMARY ---
ADMISSION DATE: 09/27/2016 DISCHARGE DATE: 10/04/2016 CONSULTATIONS: Car Zarate MD of Pulmonology. PERTINENT PROCEDURES: 1. Chest x-ray showed mildly shallow inspiration with mild bibasilar atelectasis. No other evidence of acute disease. 2. Chest, abdomen, pelvis CT showed mild cardiomegaly, dependent atelectasis at the basilar lower lobes, tiny left pleural effusion, mild hydronephrosis on the right. No etiology is apparent. Colonic diverticulosis. No evidence of diverticulitis. No abscess. No free air. No bowel obstruction. 3. Neck CT showed orotracheal neck tube, nasogastric tube present allowing for these acute process in the neck. There is mild mucosal thickening noted at the inferior right maxillary sinus. 4. Final chest x-ray showed left lower lobe atelectasis versus pneumonia. DISCHARGE DIAGNOSES: 1. Acute hypoxemic respiratory failure likely secondary to asthma exacerbation. The patient was electively intubated secondary to tiring on admission now status post extubation. She will be discharged on home O2. 2. Uncontrolled diabetes. The patient will be sent home on Lantus. 3. Morbid obesity. The patient has been educated on diet and exercise. 4. Hypoventilation syndrome followed by Pulmonology. 5. Gastroesophageal reflux disease. Continue proton pump inhibitor. 6. Hypokalemia resolved. 7. Diarrhea. Clostridium difficile was negative. Improved. HISTORY OF PRESENT ILLNESS: Ms. Buckner is a 56-year-old, female who carries a past medical history of COPD, asthma, type 2 diabetes, hypertension, GERD, who has had multiple admissions for asthma exacerbations. On her last admission she had to be intubated. On the day of her admission she complained of a 1-week history of progressive worsening shortness of breath, coughing up whitish sputum. She was in acute respiratory distress on BiPAP. Laboratory data in ED showed a white count 9000, hemoglobin and hematocrit of 12 and 37, platelet count of 293,000, blood glucose was 246, BUN 13, creatinine of 1.1, proBNP was less than 5. Chest x-ray showed mild bibasilar atelectasis with shallow inspirations. HOSPITAL COURSE: She was admitted for acute respiratory failure secondary to asthma exacerbation. She was started on IV steroids, bronchodilators and clinically due to the patient tiring count the patient agreed to be electively intubated. She was empirically treated with antibiotics. Pulmonology was consulted. While the patient was in ICU her anion gap did go up as well as her lactic acid level. She was initiated on an insulin drip. Her acetone level was negative. A chest x-ray showed a mild infiltrate or atelectasis in her left lung base. They did broaden her IV antibiotics with vancomycin and Zosyn. She was having some mild hypotension and she was given more fluid resuscitation. She continued on ventilator support. They did check a chest, abdomen and pelvis CT that did show dependent atelectasis in the bilateral lower lobes and a tiny left pleural effusion. It did not show any evidence of pneumonia. She was able to be weaned off the ventilator to a Ventimask that was weaned down to a nasal cannula that she has tolerated well on 3 L. The patient was able to move out of the ICU to a regular floor. Physical Therapy was consulted to work with the patient. She was tolerating p.o. We weaned down her IV steroids to p.o. and made adjustments to her Lantus for her hyperglycemia. The patient is stable for discharge today. She will be discharged back home with home health as well as home O2. VITAL SIGNS AT TIME OF DISCHARGE: Temperature 97.9 degrees, heart rate 63, respirations 18, blood pressure is 127/78, O2 is 100% on 3 L nasal cannula. DISCHARGE DIET: Diabetic. DISCHARGE MEDICATIONS: 1. Albuterol nebulizer 2.5 mg inhaled b.i.d. 2. Xanax 0.5 mg p.o. b.i.d. 3. Amlodipine 10 mg p.o. q.a.m. 4. Nexium 40 mg p.o. q.a.m. 5. Advair 1 puff inhaled daily. 6. Lasix 40 mg p.o. q.a.m. 7. Fleming 10/325, 1 each p.o. t.i.d. 8. Lantus 30 units subcutaneous q.a.m. 9. Medrol Dosepak as directed. 10. Nasonex nasal spray 1 spray nasally b.i.d. 11. Spiriva 1 puff inhaled RT daily. DISPOSITION: Ms. Buckner is being discharged home with home health as well as home O2. FOLLOWUP: 1. She will follow up with her primary care doctor in 1 week. Take all medications as prescribed. 2. She can return to the ED for any worsening of symptoms. DISCHARGE TIME: 30 minutes. Dictated by KEIRA Barrera for Gopal Sin MD cc: Gopal Sin MD MTDD
[2016-10-05] MEDS ORDERED: SPIRIVA INH SCH (07:30)
== END 2016-10-04 14:27 | disposition home health service (06) ==
LOC: ED 19:43 → SUATTDRO 23:45 → ICU 23:45 → 3N 10-03 16:26 → DIRADM 10-04 12:54 → 3N 10-04 13:11 → DIRADM 10-04 13:12
PROVIDERS: ATTEND Internal Medicine